=== PATIENT | male | born 1975 | race Caucasian/White ===

== ENCOUNTER 2025-03-17 12:33 | Observation (INO) ==
--- NOTE | 2025-03-17 13:21 | ED Physician Documentation ---
History of Present Illness Stated complaint Stated Complaint: AMS Chief complaint Chief Complaint: General Additonal information Additional information: 49-year-old male currently residing at [facility] due to early onset dementia presents emergency department for concerns from staff that he is acting differently than his normal self. 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 as well as history of seizures related to hyponatremia.Patient is unable to contribute anything to history when you ask him where he is or what his name is he simply responds yes alert and oriented x 0 Meds/Allgy Home Medications Ambulatory Orders Medication Instructions Recorded Confirmed amlodipine 2.5 mg tablet 2.5 mg PO DAILY 02/01/25 escitalopram oxalate 5 mg tablet 5 mg PO ONCE 02/01/25 03/15/25 quetiapine 100 mg tablet 100 mg PO QPM 02/01/2503/15 quetiapine 50 mg tablet 50 mg PO QAM 02/01/25 levetiracetam 500 mg tablet 500 mg PO BID #180 tabs 03/15/25 (Keppra) lorazepam 0.5 mg tablet (Ativan) 0.5 mg PO TID PRN anx iety 14 days 03/15/25 #42 tabs Allergies Allergies Allergy/AdvReac Type Severity Reaction Status Date / Time No Known Drug Allergies Allergy Verified 03/17/25 12:37 PFSH Active Problems All Active Problems (Updated 03/17/25 @ 17:07 by Jason Zelaya DNP) Early onset Alzheimer's dementia (Acute) Acute hypokalemia (Acute) Hypomagnesemia (Acute) Psychogenic polydipsia (Acute) Dementia (Acute) Anxiety (Acute) Seizure (Acute) Laceration of head (Acute) Acute hyponatremia (Acute) Medical History Medical History (Updated 03/17/25 @ 17:07 by Jason Zelaya DNP) Psychogenic polydipsia Dementia Social History Social History (Updated 03/15/25 @ 13:35 by Julia Lay, RN, BSN) Smoking Status: Smoker current status unk Level: Assisted Do you feel safe in your home environment?: Yes History of physical, verbal, emotional, or financial abuse?: No POLST Patient has POLST: No Exam Exam Vital Signs: Vital Signs x48h Temp Pulse Resp BP Pulse Ox 03/17/25 12:37 36.7 C 81 18 121/84 98 Results Vitals Vitals: Vital Signs - 24 hr 03/17/25 12:37 Temperature 36.7 C Temperature Source Temporal Artery Scan Pulse Rate 81 Respiratory Rate 18 Blood Pressure 121/84 O2 Saturation 98 O2 Source Room air Pain Intensity 0 Oxygen O2 Source Room air Labs Labs: Laboratory Tests 03/17/25 03/17/25 13:38 14:09 WBC 8.4 RBC 4.21 L Hgb 12.9 L Hct 35.5 L MCV 84.3 MCH 30.6 MCHC 36.3 H RDW 11.6 L Plt Count 190 MPV 9.1 Neut # (Auto) 6.7 H Lymph # (Auto) 1.0 L [place] # (Auto) 0.6 Eos # (Auto) 0.0 Baso # (Auto) 0.0 Absolute Nucleated RBC 0.00 Nucleated RBC % 0.0 Sodium 117 L* Potassium 3.1 L Chloride 84 L Carbon Dioxide 25 Anion Gap 8.0 BUN 14 Creatinine 0.8 Estimated GFR (MDRD) 102 Glucose 153 H Lactic Acid 1.1 Calcium 8.8 Magnesium 1.4 L Total Bilirubin 1.0 AST 17 ALT 13 Alkaline Phosphatase 44 Total Creatine Kinase 112 Total Protein 6.5 Albumin 4.2 Globulin 2.3 Albumin/Globulin Ratio 1.8 TSH 0.81 Salicylates < 1.5 Acetaminophen < 0.1 Ethyl Alcohol < 10.0 PD Medical Decision Making ED course ED course: 49-year-old male presents to emergency department for ongoing altered mental status. Patient was here couple days ago with similar complaints and was discharged with normal labs. He has been seen to be drinking out of the toilet due to his psychogenic polydipsia. Today upon arrival he is not answering any questions he says yes to everything unable to tell me where he is or what his name is. Labs are complete for further evaluation and reveal hyponatremia, sodium level 117, hypokalemia, potassium 3.1 and hypomagnesemia, magnesium 1.4. Spoke with hospitalist around 1411 who has graciously agreed to admit the patient for hyponatremia he was given IV Bega of magnesium oxide as well as some p.o. potassium and also a total of 50 mL of hypertonic normal saline. Discharge Plan Discharge Patient Disposition: 66 [facility] DC/Xfer Clinical Impression: Acute hyponatremia, Psychogenic polydipsia, Hypomagnesemia, Acute hypokalemia, Early onset Alzheimer's dementia Interventions: ED Admission Assessment Last Done: 03/17/25 14:56 Vitals documented within 30 minutes of discharge?: Yes
[2025-03-17 13:44] LABS: HCT - HEMATOCRIT 35.5 % (42.0-52.0); HGB - HEMOGLOBIN 12.9 g/dL (14.0-18.0); MEAN PLATELET VOLUME 9.1 fL (7.4-11.4); NRBC ABSOLUTE COUNT (AUTO) 0.00 x10^3/uL; NUCLEATED RED BLOOD CELLS AUTO 0.0 /100WBC; PLT - PLATELET COUNT 190 10^3/uL (130-450); RED CELL DISTRIBUTION WIDTH 11.6 % (12.0-15.0)
[2025-03-17 14:00] LABS: CK- CREATINE KINASE 112 IU/L (30-223); ETOH - ETHANOL < 10.0 mg/dL
[2025-03-17 14:05] LABS: ALT ALANINE AMINOTRANSFERASE 13 IU/L (10-60); AST ASPARTATE AMINOTRANSFERASE 17 IU/L (10-42); BUN - BLOOD UREA NITROGEN 14 mg/dL (6-20); CARBON DIOXIDE - CO2 25 mmol/L (21-32); CREATININE 0.8 mg/dL (0.6-1.3); GFR - MDRD 102 (>89)
--- NOTE | 2025-03-17 14:17 | HISTORY & PHYSICAL EXAMINATION ---
Chief Complaint Chief Complaint Chief Complaint: Altered mental status History of Present Illness History Obtained From Records Reviewed: EMR History obtained from: ER documentation, EMR Exam Limitations: Patient not able to provide a reliable ROS History of Present Illness HPI Comment/Other: Patient is a 49-year-old man with a history of cognitive deficits, possible early onset dementia who presented for concerns that he was acting differently from his normal self. He was having persistent nausea, repeated episodes of emesis, as well as persistent hiccups. Per [facility], the facility he lives at, he was drinking from the toilet. He does have a history of psychogenic polydipsia, and seizures related to the hyponatremia. When patient was seen, he is not able to expand further. He just states that he is not in any pain. He appears anxious, restless, and is intermittently following commands. In the ER, patient was vitally stableblood pressure 121/84, heart rate 81, respiratory rate 18, saturating 98% on room air, as well as afebrile. Lab work was reviewedCBC was largely unremarkable. BMP shows a sodium of 117, as well as a potassium of 3.1. TSH is within normal limits. Alcohol, acetaminophen and salicylate levels are negative. Of note, patient was recently admitted here from 02/01 to 02/02 for hyponatremia as well, as low as 116. At that time, he did have a seizure. The hospitalist at that time spoke with the neurologist at [facility], who recommended discharge on Keppra He was given 50 cc of hypertonic saline. Repeat BMP is ordered for 4 PM. He will then meet followed every 3-4 hours. Admitted to the ICU for close monitoring of his sodium. Meds/Allgy Home Medications Ambulatory Orders Medication Instructions Recorded Confirmed amlodipine 2.5 mg tablet 2.5 mg PO DAILY 02/01/25 escitalopram oxalate 5 mg tablet 5 mg PO ONCE 02/01/25 03/15/25 lorazepam 0.5 mg tablet 0.5 mg PO PRN PRN anxiety 03/15/25 quetiapine 100 mg tablet 100 mg PO QPM 02/01/2503/15 quetiapine 50 mg tablet 50 mg PO QAM 02/01/25 levetiracetam 500 mg tablet 500 mg PO BID #180 tabs 03/15/25 (Keppra) lorazepam 0.5 mg tablet (Ativan) 0.5 mg PO TID PRN anx iety 14 days 03/15/25 #42 tabs Allergies Allergies Allergy/AdvReac Type Severity Reaction Status Date / Time No Known Drug Allergies Allergy Verified 03/17/25 12:37 PFSH Active Problems All Active Problems (Updated 03/17/25 @ 15:40 by Nelli Feldman MD) Dementia (Acute) Anxiety (Acute) Seizure (Acute) Laceration of head (Acute) Acute hyponatremia (Acute) Medical History Medical History (Updated 03/17/25 @ 15:40 by Nelli Feldman MD) Psychogenic polydipsia Dementia Social History Social History (Updated 03/15/25 @ 13:35 by Julia Lay, RN, BSN) Smoking Status: Smoker current status unk Level: Independent Do you feel safe in your home environment?: Yes History of physical, verbal, emotional, or financial abuse?: No POLST Patient has POLST: No Review of Systems Status of ROS: unobtainable due to medical condition and unobtainable due to mental status Exam Exam Vital Signs: Vital Signs x48h Temp Pulse Resp BP Pulse Ox 03/17/25 14:52 97 20 132/84 H 98 03/17/25 12:37 98.1 F 81 18 121/84 98 Constitutional normal general appearance, distress noted (mild), average body habitus, limitations noted (altered mental status) and (behavioral limitations) and level of alertness abnormal HENMT normocephalic and head/scalp atraumatic Healed area of abrasion over left eyebrow Eyes PERRL, EOMs intact bilaterally and conjunctivae normal Neck/C-Spine visual inspection normal, trachea midline and cervical spine nontender Chest inspection of chest normal Respiratory breath sounds equal bilaterally, normal respiratory effort, clear to auscultation bilaterally, no wheezes, no rales and no retractions Cardiovascular normal heart rate noted, regular rhythm noted, no gallop, no rub and no murmur Gastrointestinal abdomen normal to inspection, abdomen soft to palpation, nontender to palpation and normoactive bowel sounds Genitourinary no CVA tenderness and bladder normal to palpation Back/Pelvis spine normal to inspection, no thoracic spine tenderness and no lumbar spine tenderness Extremities normal to inspection, normal to palpation, no tenderness and full ROM Neurology Patient moving spontaneously, he does squeeze bilateral hands, but does not follow any other commands to accurately discern full neurological exam Psychiatry orientation abnormal (disoriented to person), (disoriented to place) and (disoriented to time), thought process abnormality noted, uncooperative and affect abnormality noted Skin skin color normal Conclusion/Plan Problem List (1) Acute hyponatremia: Plan: This hyponatremia is 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 Patient was found drinking out of the toilet bowl at his [facility] facility. Sodium is 117. Will give one dose of hypertonic saline, 50 cc, as patient is very symptomatic with this hyponatremiahe is confused, altered, tremulous. Will recheck sodium after this, and then every 3-4 hours after that. Goal correction is 6-8 mill equivalents over 24 hours. If overcorrects, will start D5. Patient was recently admitted from 02/01 to 02/02 for very similar reasons. At that time, he had a seizure. Attempts were made to transfer him to [facility] for EEG, neurology workup, but due to bed availability, this was not successful. Consideration was made for diabetes insipidus. On his last admission, urine osmolality was indeed less than 300, but serum osmolality was also low, making this less likely. Urine osmolality was low, less than, 82. Serum osmolality was also low 244. This is more indicative of psychogenic polydipsia. As such, we will treat with free water restriction, appropriate sodium correction. Patient will need close follow-up with a psychiatrist to determine if Seroquel is causing this, and how to make appropriate adjustments. (2) Seizure: Plan: During his last admission, he did have a seizure. May have been attributed to the hyponatremia. Previous hospitalist spoke with the neurologist, who recommended Keppra, 5 mg twice a day. This will be continued at this time. (3) Dementia: Plan: Typically, patient is conversive, and interactive. Currently this is not the case. Attributed to above. Qualifiers: Dementia type: unspecified type Dementia severity: unspecified severity Dementia behavioral or psychological symptom: unspecified whether behavioral, psychotic, or mood disturbance or anxiety Qualified Code(s): F03.90 - Unspecified dementia, unspecified severity, without behavioral disturbance, psychotic disturbance, mood disturbance, and anxiety Lab Results 03/17/25 13:38 03/17/25 13:38 Diagnostic Imaging Results Diagnostic Imaging Results: positive Final report reviewed Core Measures Anticipated LOS I expect patient to be DC'd or transferred within 96 hours.: Yes Issues Hospital Issues and Management Plan: None anticipated. DVT/VTE - Prophylaxis VTE/DVT Device ordered at admit?: No VTE/DVT Prophylaxis med ordered at admit?: Yes
[2025-03-17] MEDS: MAGNESIUM SULFATE 2 GRAM 2 GM/50 ML BAG IV ONE (14:46)
[2025-03-17] MEDS: SODIUM CHLORIDE 3% HYPERTONIC 50 ML IV SCH ×2 (14:46→17:12)
[2025-03-17] MEDS: POTASSIUM CHLORIDE 20 MEQ TABLET PO STA (14:47)
[2025-03-17] MEDS ORDERED: ONDANSETRON 4 MG/2 ML VIAL IVP PRN (15:12)
[2025-03-17] MEDS ORDERED: ONDANSETRON ODT 4 MG TABLET TL PRN (15:12)
[2025-03-17 16:41] LABS: GLUCOSE, URINE (UA) NEGATIVE (NEGATIVE); KETONES,URINE (UA) NEGATIVE (NEGATIVE); OCCULT BLOOD,URINE TRACE (NEGATIVE)
[2025-03-17 16:53] LABS: COCAINE SCREEN URINE NEGATIVE (NEGATIVE); THC CANNABINOID SCREEN, URINE NEGATIVE (NEGATIVE)
[2025-03-17 16:54] LABS: AMPHETAMINE SCREEN,URINE NEGATIVE (NEGATIVE); BARBITURATE SCREEN,UR NEGATIVE (NEGATIVE); BENZODIAZEPINES SCREEN, URINE POSITIVE (NEGATIVE); BUPRENORPHINE SCREEN, URINE NEGATIVE (NEGATIVE); METHADONE SCREEN, URINE NEGATIVE (NEGATIVE); METHAMPHETAMINES SCREEN, URINE NEGATIVE (NEGATIVE); OPIATE SCREEN, URINE NEGATIVE (NEGATIVE)
[2025-03-17 16:56] LABS: EPITHELIAL CELLS,UR RARE Transitional /HPF (<= Few); SQUAMOUS EPITHELIAL CELL,UR NONE SEEN (<= Few)
[2025-03-17] MEDS: LORazepam 2 MG/ML VIAL IVP SCH (17:20)
[2025-03-17] MEDS: LORazepam 2 MG/ML VIAL IVP ONE (18:13)
[2025-03-17] MEDS: ACETAMINOPHEN 325 MG TABLET PO PRN (20:38)
[2025-03-17 21:24] LABS: BUN - BLOOD UREA NITROGEN 12.0 mg/dL (6-20); CARBON DIOXIDE - CO2 30.0 mmol/L (21-32); CREATININE 1.0 mg/dL (0.6-1.3); GFR - MDRD 79.0 (>89)
[2025-03-18 04:31] LABS: HCT - HEMATOCRIT 39.0 % (42.0-52.0); HGB - HEMOGLOBIN 13.6 g/dL (14.0-18.0); MEAN PLATELET VOLUME 9.2 fL (7.4-11.4); NRBC ABSOLUTE COUNT (AUTO) 0.00 x10^3/uL; NUCLEATED RED BLOOD CELLS AUTO 0.0 /100WBC; PLT - PLATELET COUNT 212 10^3/uL (130-450); RED CELL DISTRIBUTION WIDTH 12.3 % (12.0-15.0)
[2025-03-18 04:52] LABS: BUN - BLOOD UREA NITROGEN 16.0 mg/dL (6-20); CARBON DIOXIDE - CO2 25.0 mmol/L (21-32); CREATININE 0.9 mg/dL (0.6-1.3); GFR - MDRD 89.0 (>89)
[2025-03-18] MEDS: DEXTROSE 5% 1,000 ML IV SCH (07:25)
[2025-03-18] MEDS: DESMOPRESSIN 4 MCG/ML AMP IVP STA (07:44)
[2025-03-18] MEDS: ENOXAPARIN 40 MG/0.4 ML SYRINGE SUBQ SCH (08:43)
--- NOTE | 2025-03-18 09:07 | PROVIDER PROGRESS NOTE ---
Subjective Subjective Subjective: Patient is doing much better today in terms of his mental status. He is alert and oriented x 2. He is cooperative and calm and following commands. His appetite has returned. Plan was to complete MRI today. Apparently he had one done about a month ago. Records have been requested. Current Medications Current Medications Current Medications: Current Medications Generic Name Dose Route Start Last Admin Trade Name Freq PRN Reason Stop Dose Admin Acetaminophen 650 mg 03/17/25 15:12 03/17/25 20:38 Acetaminophen 325 Mg Tablet PO 650 mg Q4HR PRN Administration Pain 1 to 4, or Fever Enoxaparin Sodium 40 mg 03/18/25 09:00 03/18/25 08:43 Enoxaparin 40 Mg/0.4 Ml Syringe SUBQ 40 mg DAILY BERNICE Administration Dextrose 1,000 mls @ 150 mls/hr 03/17/25 22:00 03/18/25 07:44 D5w IV 150 mls/hr .[id number] BERNICE Administration Levetiracetam 500 mg 03/17/25 21:00 03/18/25 08:43 Levetiracetam 250 Mg Tablet PO 500 mg BID BERNICE Administration Lorazepam 0.5 mg 03/17/25 15:39 03/17/25 16:51 Lorazepam 0.5 Mg Tablet PO 0.5 mg TID PRN Administration Anxiety Ondansetron HCl 4 mg 03/17/25 15:12 Ondansetron Odt 4 Mg Tablet TL Q6HR PRN Nausea / Vomiting Ondansetron HCl 4 mg 03/17/25 15:12 Ondansetron 4 Mg/2 Ml Vial IVP Q6HR PRN Nausea / Vomiting Prochlorperazine Edisylate 10 mg 03/17/25 20:23 Prochlorperazine 10 Mg/2 Ml Vial IVP Q6HR PRN Nausea / Vomiting Quetiapine Fumarate 100 mg 03/17/25 21:00 03/17/25 20:38 Quetiapine 100 Mg Tablet PO 100 mg QPM BERNICE Administration Quetiapine Fumarate 50 mg 03/17/25 17:40 03/18/25 08:43 Quetiapine 25 Mg Tablet PO 50 mg DAILY BERNICE Administration Trazodone HCl 50 mg 03/17/25 21:00 03/17/25 20:41 Trazodone 50 Mg Tablet PO 50 mg QPM BERNICE Administration Objective Vital Signs/Intake & Output Reviewed Vital Signs: Yes Vital Signs: Vital Signs x48h Temp Pulse Resp BP Pulse Ox 03/18/25 09:00 99.0 F 82 17 109/70 97 03/18/25 08:00 74 15 91/54 L 95 03/18/25 07:00 73 15 100/59 L 96 03/18/25 06:00 76 17 113/56 L 96 03/18/25 05:00 98.4 F 03/18/25 05:00 78 13 101/60 95 03/18/25 04:00 83 13 114/62 95 03/18/25 03:00 78 14 107/61 95 03/18/25 02:00 99.1 F 94 17 103/72 95 Intake & Output: Intake & Output 03/15/25 03/16/25 03/17/25 03/18/25 23:59 23:59 23:59 23:59 Intake Total 1066 / 1066 240 / 240 Output Total 6725 / 6725 650 / 650 Balance -5659 / -5659 -410 / -410 Weight (kg) 72 kg Objective General Appearance: positive No acute distress and Alert; negative Anxious Eyes Bilateral: positive Normal inspection, PERRL, EOMI and Other (Healed area of abrasion over left eyebrow) ENT: positive ENT inspection nml, Pharynx nml and No signs of dehydration Neck: positive Nml inspection, Thyroid nml and No JVD Respiratory: positive Chest non-tender, No respiratory distress and Breath sounds nml; negative Wheezes, Rales or Rhonchi Cardiovascular: positive Regular rate & rhythm, No murmur and No gallop; negative Tachycardia or Systolic murmur Abdomen: positive Non-tender, No organomegaly and No distention; negative Guarding or Splenomegaly Back: positive Nml inspection; negative CVA tenderness (R) or CVA tenderness (L) Skin: positive Color nml, No rash, Warm and Dry Extremities: positive Non-tender, Full ROM, Nml appearance and No pedal edema Neurologic/Psychiatric: positive Motor nml, Mood/affect nml and Disoriented to place Lab Results 03/18/25 04:26 03/18/25 13:42 Other Labs: Lab Results x24hrs 03/18/25 03/18/25 03/17/25 Range/Units 04:26 02:00 22:04 WBC 6.4 (4.8-10.8) x10^3/uL RBC 4.42 L (4.70-6.10) 10^6/uL Hgb 13.6 L (14.0-18.0) g/dL Hct 39.0 L (42.0-52.0) % MCV 88.2 (80.0-94.0) fL MCH 30.8 (27.0-31.0) pg MCHC 34.9 (32.0-36.0) g/dL RDW 12.3 (12.0-15.0) % Plt Count 212 (130-450) 10^3/uL MPV 9.2 (7.4-11.4) fL Neut # (Auto) 4.3 (1.5-6.6) 10^3/uL Lymph # (Auto) 1.4 L (1.5-3.5) 10^3/uL [place] # (Auto) 0.7 (0.0-1.0) 10^3/uL Eos # (Auto) 0.1 (0.0-0.7) 10^3/uL Baso # (Auto) 0.0 (0.0-0.1) 10^3/uL Absolute Nucleated RBC 0.00 x10^3/uL Nucleated RBC % 0.0 /100WBC Sodium 137 136 135 (135-145) mmol/L Potassium 4.3 (3.5-4.5) mmol/L Chloride 106 (101-111) mmol/L Carbon Dioxide 25 (21-32) mmol/L Anion Gap 6.0 (6-13) BUN 16 (6-20) mg/dL Creatinine 0.9 (0.6-1.3) mg/dL Estimated GFR (MDRD) 89 (>89) Glucose 131 H (74-104) mg/dL Lactic Acid (0.5-2.2) mmol/L Calcium 8.8 (8.5-10.3) mg/dL Magnesium (1.7-2.3) mg/dL Total Bilirubin (0.2-1.0) mg/dL AST (10-42) IU/L ALT (10-60) IU/L Alkaline Phosphatase (42-121) IU/L Total Creatine Kinase (30-223) IU/L Total Protein (6.4-8.9) g/dL Albumin (3.2-5.5) g/dL Globulin (2.1-4.2) g/dL Albumin/Globulin Ratio (1.0-2.2) TSH (0.34-5.60) uIU/mL Urine Color Urine Clarity (CLEAR) Urine pH (5.0-7.5) PH Ur Specific [place] (1.002-1.030) Urine Protein (NEGATIVE) mg/dL Urine Glucose (UA) (NEGATIVE) mg/dL Urine Ketones (NEGATIVE) mg/dL Urine Occult Blood (NEGATIVE) Urine Nitrite (NEGATIVE) Urine Bilirubin (NEGATIVE) Urine Urobilinogen (NORMAL) E.U./dL Ur Leukocyte Esterase (NEGATIVE) Urine RBC (0-5) /HPF Urine WBC (0-3) /HPF Ur Epithelial Cells (<= Few) /HPF Ur Squamous Epith Cells (<= Few) Urine Bacteria (None Seen) /HPF Ur Microscopic Review Urine Culture Comments Nasal Screen MRSA (PCR) (NEGATIVE) Salicylates mg/dL Urine Opiates Screen (NEGATIVE) Ur Buprenorphine Scrn (NEGATIVE) Ur Oxycodone Screen (NEGATIVE) Urine Methadone Screen (NEGATIVE) Urine Fentanyl Screen (NEGATIVE) Acetaminophen ug/mL Ur Barbiturates Screen (NEGATIVE) Ur Tricyclics Screen (NEGATIVE) Ur Phencyclidine Scrn (NEGATIVE) Ur Amphetamine Screen (NEGATIVE) U Methamphetamines Scrn (NEGATIVE) U Benzodiazepines Scrn (NEGATIVE) Urine Cocaine Screen (NEGATIVE) U Cannabinoids Screen (NEGATIVE) Ur Drug Screen Comment Ethyl Alcohol mg/dL 03/17/25 03/17/25 03/17/25 Range/Units 20:52 16:21 16:00 WBC (4.8-10.8) x10^3/uL RBC (4.70-6.10) 10^6/uL Hgb (14.0-18.0) g/dL Hct (42.0-52.0) % MCV (80.0-94.0) fL MCH (27.0-31.0) pg MCHC (32.0-36.0) g/dL RDW (12.0-15.0) % Plt Count (130-450) 10^3/uL MPV (7.4-11.4) fL Neut # (Auto) (1.5-6.6) 10^3/uL Lymph # (Auto) (1.5-3.5) 10^3/uL [place] # (Auto) (0.0-1.0) 10^3/uL Eos # (Auto) (0.0-0.7) 10^3/uL Baso # (Auto) (0.0-0.1) 10^3/uL Absolute Nucleated RBC x10^3/uL Nucleated RBC % /100WBC Sodium 135 120 L* (135-145) mmol/L Potassium 3.9 (3.5-4.5) mmol/L Chloride 99 L (101-111) mmol/L Carbon Dioxide 30 (21-32) mmol/L Anion Gap 6.0 (6-13) BUN 12 (6-20) mg/dL Creatinine 1.0 (0.6-1.3) mg/dL Estimated GFR (MDRD) 79 L (>89) Glucose 135 H (74-104) mg/dL Lactic Acid (0.5-2.2) mmol/L Calcium 9.2 (8.5-10.3) mg/dL Magnesium 2.5 H (1.7-2.3) mg/dL Total Bilirubin (0.2-1.0) mg/dL AST (10-42) IU/L ALT (10-60) IU/L Alkaline Phosphatase (42-121) IU/L Total Creatine Kinase (30-223) IU/L Total Protein (6.4-8.9) g/dL Albumin (3.2-5.5) g/dL Globulin (2.1-4.2) g/dL Albumin/Globulin Ratio (1.0-2.2) TSH (0.34-5.60) uIU/mL Urine Color YELLOW Urine Clarity CLEAR (CLEAR) Urine pH 7.0 (5.0-7.5) PH Ur Specific [place] 1.005 (1.002-1.030) Urine Protein NEGATIVE (NEGATIVE) mg/dL Urine Glucose (UA) NEGATIVE (NEGATIVE) mg/dL Urine Ketones NEGATIVE (NEGATIVE) mg/dL Urine Occult Blood TRACE (NEGATIVE) Urine Nitrite NEGATIVE (NEGATIVE) Urine Bilirubin NEGATIVE (NEGATIVE) Urine Urobilinogen 0.2 (NORMAL) (NORMAL) E.U./dL Ur Leukocyte Esterase NEGATIVE (NEGATIVE) Urine RBC 0-5 (0-5) /HPF Urine WBC 0-3 (0-3) /HPF Ur Epithelial Cells RARE Transitional (<= Few) /HPF Ur Squamous Epith Cells NONE SEEN (<= Few) Urine Bacteria None Seen (None Seen) /HPF Ur Microscopic Review INDICATED Urine Culture Comments NOT INDICATED Nasal Screen MRSA (PCR) (NEGATIVE) Salicylates mg/dL Urine Opiates Screen NEGATIVE (NEGATIVE) Ur Buprenorphine Scrn NEGATIVE (NEGATIVE) Ur Oxycodone Screen NEGATIVE (NEGATIVE) Urine Methadone Screen NEGATIVE (NEGATIVE) Urine Fentanyl Screen Negative (NEGATIVE) Acetaminophen ug/mL Ur Barbiturates Screen NEGATIVE (NEGATIVE) Ur Tricyclics Screen POSITIVE H (NEGATIVE) Ur Phencyclidine Scrn NEGATIVE (NEGATIVE) Ur Amphetamine Screen NEGATIVE (NEGATIVE) U Methamphetamines Scrn NEGATIVE (NEGATIVE) U Benzodiazepines Scrn POSITIVE H (NEGATIVE) Urine Cocaine Screen NEGATIVE (NEGATIVE) U Cannabinoids Screen NEGATIVE (NEGATIVE) Ur Drug Screen Comment CUTOFF CONC BELOW: Ethyl Alcohol mg/dL 03/17/25 03/17/25 03/17/25 Range/Units 15:14 14:09 13:38 WBC 8.4 (4.8-10.8) x10^3/uL RBC 4.21 L (4.70-6.10) 10^6/uL Hgb 12.9 L (14.0-18.0) g/dL Hct 35.5 L (42.0-52.0) % MCV 84.3 (80.0-94.0) fL MCH 30.6 (27.0-31.0) pg MCHC 36.3 H (32.0-36.0) g/dL RDW 11.6 L (12.0-15.0) % Plt Count 190 (130-450) 10^3/uL MPV 9.1 (7.4-11.4) fL Neut # (Auto) 6.7 H (1.5-6.6) 10^3/uL Lymph # (Auto) 1.0 L (1.5-3.5) 10^3/uL [place] # (Auto) 0.6 (0.0-1.0) 10^3/uL Eos # (Auto) 0.0 (0.0-0.7) 10^3/uL Baso # (Auto) 0.0 (0.0-0.1) 10^3/uL Absolute Nucleated RBC 0.00 x10^3/uL Nucleated RBC % 0.0 /100WBC Sodium 117 L* (135-145) mmol/L Potassium 3.1 L (3.5-4.5) mmol/L Chloride 84 L (101-111) mmol/L Carbon Dioxide 25 (21-32) mmol/L Anion Gap 8.0 (6-13) BUN 14 (6-20) mg/dL Creatinine 0.8 (0.6-1.3) mg/dL Estimated GFR (MDRD) 102 (>89) Glucose 153 H (74-104) mg/dL Lactic Acid 1.1 (0.5-2.2) mmol/L Calcium 8.8 (8.5-10.3) mg/dL Magnesium 1.4 L (1.7-2.3) mg/dL Total Bilirubin 1.0 (0.2-1.0) mg/dL AST 17 (10-42) IU/L ALT 13 (10-60) IU/L Alkaline Phosphatase 44 (42-121) IU/L Total Creatine Kinase 112 (30-223) IU/L Total Protein 6.5 (6.4-8.9) g/dL Albumin 4.2 (3.2-5.5) g/dL Globulin 2.3 (2.1-4.2) g/dL Albumin/Globulin Ratio 1.8 (1.0-2.2) TSH 0.81 (0.34-5.60) uIU/mL Urine Color Urine Clarity (CLEAR) Urine pH (5.0-7.5) PH Ur Specific [place] (1.002-1.030) Urine Protein (NEGATIVE) mg/dL Urine Glucose (UA) (NEGATIVE) mg/dL Urine Ketones (NEGATIVE) mg/dL Urine Occult Blood (NEGATIVE) Urine Nitrite (NEGATIVE) Urine Bilirubin (NEGATIVE) Urine Urobilinogen (NORMAL) E.U./dL Ur Leukocyte Esterase (NEGATIVE) Urine RBC (0-5) /HPF Urine WBC (0-3) /HPF Ur Epithelial Cells (<= Few) /HPF Ur Squamous Epith Cells (<= Few) Urine Bacteria (None Seen) /HPF Ur Microscopic Review Urine Culture Comments Nasal Screen MRSA (PCR) NEGATIVE (NEGATIVE) Salicylates < 1.5 mg/dL Urine Opiates Screen (NEGATIVE) Ur Buprenorphine Scrn (NEGATIVE) Ur Oxycodone Screen (NEGATIVE) Urine Methadone Screen (NEGATIVE) Urine Fentanyl Screen (NEGATIVE) Acetaminophen < 0.1 ug/mL Ur Barbiturates Screen (NEGATIVE) Ur Tricyclics Screen (NEGATIVE) Ur Phencyclidine Scrn (NEGATIVE) Ur Amphetamine Screen (NEGATIVE) U Methamphetamines Scrn (NEGATIVE) U Benzodiazepines Scrn (NEGATIVE) Urine Cocaine Screen (NEGATIVE) U Cannabinoids Screen (NEGATIVE) Ur Drug Screen Comment Ethyl Alcohol < 10.0 mg/dL Diagnostic Imaging Diagnostic Imaging Results: positive Final report reviewed Assessment/Plan Problem List (1) Acute hyponatremia: Impression: This hyponatremia is 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 Patient was found drinking out of the toilet bowl at his [facility] facility. Sodium is 117. Patinet was given hypertonic saline, 50 cc, x 2 as patient was very symptomatic with this hyponatremiahe was confused, altered, tremulous. Goal correction is 6-8 mill equivalents over 24 hours. He overcorrected overnight. D5 was ordered overnight. DDAVP given this morning. Continue to trend BMPs today. Monitor for hypokalemia with D5 use. Patient was recently admitted from 02/01 to 02/02 for very similar reasons. At that time, he had a seizure. Attempts were made to transfer him to [place] for EEG, neurology workup, but due to bed availability, this was not successful. Consideration was made for diabetes insipidus. On his last admission, urine osmolality was indeed less than 300, but serum osmolality was also low, making this less likely. Urine osmolality was low, less than, 82. Serum osmolality was also low 244. This is more indicative of psychogenic polydipsia. As such, we will treat with free water restriction, appropriate sodium correction. Patient will need close follow-up with a psychiatrist to determine if Seroquel is causing this, and how to make appropriate adjustments. (2) Seizure: Impression: During his last admission, he did have a seizure. May have been attributed to the hyponatremia. Previous hospitalist spoke with the neurologist, who recommended Keppra, 500 mg twice a day. This will be continued at this time. (3) Dementia: Impression: Typically, patient is conversive, and interactive. Back at his baseline. Continue nightly Seroquel. Qualifiers: Dementia behavioral or psychological symptom: unspecified whether behavioral, psychotic, or mood disturbance or anxiety Dementia severity: u nspecified severity Dementia type: unspecified type Qualified Code(s): F03.90 - Unspecified dementia, unspecified severity, without behavioral disturbance, psychotic disturbance, mood disturbance, and anxiety
[2025-03-18 17:13] LABS: BUN - BLOOD UREA NITROGEN 16.0 mg/dL (6-20); CARBON DIOXIDE - CO2 26.0 mmol/L (21-32); CREATININE 0.8 mg/dL (0.6-1.3); GFR - MDRD 102.0 (>89)
--- NOTE | 2025-03-18 17:17 | PHARMACY PROGRESS NOTE ---
Best Possible Medication History Admit Date and Time: 03/17/25 [id number] Home Medications Medication Instructions Recorded Confirmed Type amlodipine 2.5 mg tablet 2.5 mg PO DAILY 02/01/25 History escitalopram oxalate 5 mg tablet 5 mg PO DAILY 5 03/18/25 History quetiapine 100 mg tablet 100 mg PO QPM 02/01/2503/18 History quetiapine 50 mg tablet 50 mg PO QAM 02/01/25 History levetiracetam 500 mg tablet 500 mg PO BID #180 tabs 03/18/25 Rx (Keppra) lorazepam 0.5 mg tablet (Ativan) 0.5 mg PO DAILY PRN a nxiety 03/18/25 03/18/25 History Processed by: Pharmacy Medications reviewed in ED?: No Medication History completed: Yes Patient Interview: Pt unable to participate Secondary Source(s): Pharmacy records, Insurance records and Previous admit records [facility] Statement: As the person ultimately responsible for medication therapy, providers are able to order a medication from an existing home medication list in [facility] via the "Reconcile Routine" prior to Confirmation of that medication by administrative support specialist. Such practice is discouraged except when the physician, in their clinical judgment, deems that a medical need exists for a medication without regard to previous use.
[2025-03-18 21:49] LABS: BUN - BLOOD UREA NITROGEN 15.0 mg/dL (6-20); CARBON DIOXIDE - CO2 27.0 mmol/L (21-32); CREATININE 0.7 mg/dL (0.6-1.3); GFR - MDRD 119.0 (>89)
[2025-03-18] MEDS: PROCHLORPERAZINE 10 MG/2 ML VIAL IVP PRN (22:42)
[2025-03-19 01:51] LABS: BUN - BLOOD UREA NITROGEN 14.0 mg/dL (6-20); CARBON DIOXIDE - CO2 28.0 mmol/L (21-32); CREATININE 0.7 mg/dL (0.6-1.3); GFR - MDRD 119.0 (>89)
[2025-03-19 04:50] LABS: HCT - HEMATOCRIT 35.0 % (42.0-52.0); HGB - HEMOGLOBIN 11.9 g/dL (14.0-18.0); MEAN PLATELET VOLUME 9.1 fL (7.4-11.4); NRBC ABSOLUTE COUNT (AUTO) 0.00 x10^3/uL; NUCLEATED RED BLOOD CELLS AUTO 0.0 /100WBC; PLT - PLATELET COUNT 167 10^3/uL (130-450); RED CELL DISTRIBUTION WIDTH 12.5 % (12.0-15.0)
[2025-03-19 05:06] LABS: BUN - BLOOD UREA NITROGEN 12.0 mg/dL (6-20); CARBON DIOXIDE - CO2 26.0 mmol/L (21-32); CREATININE 0.6 mg/dL (0.6-1.3); GFR - MDRD 143.0 (>89)
--- NOTE | 2025-03-19 08:01 | PROVIDER PROGRESS NOTE ---
Subjective Prog Note Date Prog Note Date: 03/19/25 Prog Note Time: 08:01 Subjective Subjective: He tells me he was born in [place]. But he cannot remember how he came to [facility]. Cannot remember where he lives. He knows this is a hospital but he does not know why he is here. I can redirect him. No outburst of behavior. He keeps on asking for water. He tells me he is thirsty and he just wants to drink water. He denies any pain. No headache. No chest pain. No abdominal pain. Does not feel like he is short of breath. And he is not coughing. Current Medications Current Medications Current Medications: Current Medications Generic Name Dose Route Start Last Admin Trade Name Freq PRN Reason Stop Dose Admin Acetaminophen 650 mg 03/17/25 15:12 03/17/25 20:38 Acetaminophen 325 Mg Tablet PO 650 mg Q4HR PRN Administration Pain 1 to 4, or Fever Enoxaparin Sodium 40 mg 03/18/25 09:00 03/18/25 08:43 Enoxaparin 40 Mg/0.4 Ml Syringe SUBQ 40 mg DAILY BERNICE Administration Levetiracetam 500 mg 03/17/25 21:00 03/18/25 20:38 Levetiracetam 250 Mg Tablet PO 500 mg BID BERNICE Administration Lorazepam 0.5 mg 03/17/25 15:39 03/18/25 22:40 Lorazepam 0.5 Mg Tablet PO 0.5 mg TID PRN Administration Anxiety Ondansetron HCl 4 mg 03/17/25 15:12 Ondansetron Odt 4 Mg Tablet TL Q6HR PRN Nausea / Vomiting Ondansetron HCl 4 mg 03/17/25 15:12 Ondansetron 4 Mg/2 Ml Vial IVP Q6HR PRN Nausea / Vomiting Prochlorperazine Edisylate 10 mg 03/17/25 20:23 03/18/25 22:42 Prochlorperazine 10 Mg/2 Ml Vial IVP 10 mg Q6HR PRN Administration Nausea / Vomiting Quetiapine Fumarate 100 mg 03/17/25 21:00 03/18/25 20:38 Quetiapine 100 Mg Tablet PO 100 mg QPM BERNICE Administration Quetiapine Fumarate 50 mg 03/17/25 17:40 03/18/25 08:43 Quetiapine 25 Mg Tablet PO 50 mg DAILY BERNICE Administration Trazodone HCl 50 mg 03/17/25 21:00 03/18/25 20:38 Trazodone 50 Mg Tablet PO 50 mg QPM BERNICE Administration Objective Vital Signs/Intake & Output Reviewed Vital Signs: Yes Vital Signs: Vital Signs x48h Temp Pulse Resp BP Pulse Ox 03/19/25 06:58 66 14 95 03/19/25 06:00 63 14 101/70 95 03/19/25 05:00 68 14 104/65 95 03/19/25 04:00 66 13 124/72 96 03/19/25 03:00 66 14 117/68 94 03/19/25 02:00 36.9 C 66 16 130/79 97 03/19/25 01:00 66 14 113/68 97 Intake & Output: Intake & Output 03/16/25 03/17/25 03/18/25 03/19/25 23:59 23:59 23:59 23:59 Intake Total 1066 / 1066 3930 / 3930 225 / 225 Output Total 6725 / 6725 1260 / 1260 980 / 980 Balance -5659 / -5659 2670 / 2670 -755 / -755 Weight (kg) 72 kg Objective General Appearance: positive No acute distress, Alert and Other (Looks much younger than stated age.) Eyes Bilateral: positive PERRL and EOMI ENT: positive No signs of dehydration Neck: positive No JVD; negative Stiff neck or Carotid bruit Respiratory: positive Chest non-tender, No respiratory distress and Breath sounds nml Cardiovascular: positive Regular rate & rhythm, No murmur and No gallop Abdomen: positive Non-tender, No organomegaly and Nml bowel sounds Skin: positive Color nml, Warm and Dry Extremities: positive Non-tender, Full ROM and Nml appearance Neurologic/Psychiatric: positive CN's nml (2-12), Motor nml, Disoriented to place and Disoriented to time; negative Mood/affect nml Lab Results 03/19/25 04:43 03/19/25 12:54 Other Labs: Lab Results x24hrs 03/19/25 03/19/25 03/18/25 Range/Units 04:43 01:20 21:30 WBC 5.3 (4.8-10.8) x10^3/uL RBC 3.90 L (4.70-6.10) 10^6/uL Hgb 11.9 L (14.0-18.0) g/dL Hct 35.0 L (42.0-52.0) % MCV 89.7 (80.0-94.0) fL MCH 30.5 (27.0-31.0) pg MCHC 34.0 (32.0-36.0) g/dL RDW 12.5 (12.0-15.0) % Plt Count 167 (130-450) 10^3/uL MPV 9.1 (7.4-11.4) fL Neut # (Auto) 2.6 (1.5-6.6) 10^3/uL Lymph # (Auto) 1.9 (1.5-3.5) 10^3/uL [place] # (Auto) 0.6 (0.0-1.0) 10^3/uL Eos # (Auto) 0.2 (0.0-0.7) 10^3/uL Baso # (Auto) 0.0 (0.0-0.1) 10^3/uL Absolute Nucleated RBC 0.00 x10^3/uL Nucleated RBC % 0.0 /100WBC Sodium 126 L 128 L 129 L (135-145) mmol/L Potassium 3.5 3.7 3.9 (3.5-4.5) mmol/L Chloride 95 L 95 L 97 L (101-111) mmol/L Carbon Dioxide 26 28 27 (21-32) mmol/L Anion Gap 5.0 L 5.0 L 5.0 L (6-13) BUN 12 14 15 (6-20) mg/dL Creatinine 0.6 0.7 0.7 (0.6-1.3) mg/dL Estimated GFR (MDRD) 143 119 119 (>89) Glucose 102 108 H 132 H (74-104) mg/dL Calcium 8.2 L 8.2 L 8.1 L (8.5-10.3) mg/dL Magnesium 1.9 (1.7-2.3) mg/dL 03/18/25 03/18/25 03/18/25 Range/Units 16:51 13:42 09:59 WBC (4.8-10.8) x10^3/uL RBC (4.70-6.10) 10^6/uL Hgb (14.0-18.0) g/dL Hct (42.0-52.0) % MCV (80.0-94.0) fL MCH (27.0-31.0) pg MCHC (32.0-36.0) g/dL RDW (12.0-15.0) % Plt Count (130-450) 10^3/uL MPV (7.4-11.4) fL Neut # (Auto) (1.5-6.6) 10^3/uL Lymph # (Auto) (1.5-3.5) 10^3/uL [place] # (Auto) (0.0-1.0) 10^3/uL Eos # (Auto) (0.0-0.7) 10^3/uL Baso # (Auto) (0.0-0.1) 10^3/uL Absolute Nucleated RBC x10^3/uL Nucleated RBC % /100WBC Sodium 132 L 134 L 135 (135-145) mmol/L Potassium 3.8 (3.5-4.5) mmol/L Chloride 100 L (101-111) mmol/L Carbon Dioxide 26 (21-32) mmol/L Anion Gap 6.0 (6-13) BUN 16 (6-20) mg/dL Creatinine 0.8 (0.6-1.3) mg/dL Estimated GFR (MDRD) 102 (>89) Glucose 149 H (74-104) mg/dL Calcium 8.0 L (8.5-10.3) mg/dL Magnesium (1.7-2.3) mg/dL Assessment/Plan Problem List (1) Acute hyponatremia: Impression: This hyponatremia is 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 Patient was found drinking out of the toilet bowl at his [facility] facility. Sodium is 117. Patient was given hypertonic saline, 50 cc, x 2 as patient was very symptomatic with this hyponatremiahe was confused, altered, tremulous. Goal correction is 6-8 mill equivalents over 24 hours. 03/18>>He overcorrected overnight. D5 was ordered overnight. DDAVP given. Continue to trend BMPs.Monitor for hypokalemia with D5 use. Patient was recently admitted from 02/01 to 02/02 to for very similar reasons. At that time, he had a seizure. Attempts were made to transfer him to [place] for EEG, neurology workup, but due to bed availability, this was not successful. He had been admitted to [facility] December 2024 twice for this and it was from one of those discharges that he came to this [place]. Consideration was made for diabetes insipidus. On his last admission, urine osmolality was indeed less than 300, but serum osmolality was also low, making this less likely. Urine osmolality was low, less than, 82. Serum osmolality was also low 244. This is more indicative of psychogenic polydipsia. As such, we treated with free water restriction, appropriate sodium correction. Patient will need close follow-up with a psychiatrist to determine if Seroquel is causing this but the behavior started BEFORE the Seroquel was given 03/19>>4:45 AM sodium 126. D5 stopped at approximately 8 in the morning. At 9 AM sodium 130. At 1 PM sodium 136 so D5 resumed again. Too fast of a correction. -- The neurologist who took care of him in December, Dr. Sauceda, called us and left a message with the nurse. Said to call them back if we needed advice. The on- call neurologist answered at [phone]. They will recommend using Gatorade or any other oral electrolyte replacement instead of water to see if that would curb some of his behavior. They also recommended Depakote IV to see if we could control some of the impulsive thought process. (2) Seizure: Impression: During his last admission, he did have a seizure. May have been attributed to the hyponatremia. Previous hospitalist at that time spoke with the neurologist, who recommended Keppra, 500 mg twice a day. This will be continued at this time. (3) Dementia: Impression: Typically, patient is conversive, and interactive. Back at his baseline. Continue nightly Seroquel. Qualifiers: Dementia behavioral or psychological symptom: unspecified whether behavioral, psychotic, or mood disturbance or anxiety Dementia severity: u nspecified severity Dementia type: unspecified type Qualified Code(s): F03.90 - Unspecified dementia, unspecified severity, without behavioral disturbance, psychotic disturbance, mood disturbance, and anxiety
[2025-03-19 09:22] LABS: BUN - BLOOD UREA NITROGEN 11.0 mg/dL (6-20); CARBON DIOXIDE - CO2 29.0 mmol/L (21-32); CREATININE 0.7 mg/dL (0.6-1.3); GFR - MDRD 119.0 (>89)
[2025-03-19 13:16] LABS: BUN - BLOOD UREA NITROGEN 12.0 mg/dL (6-20); CARBON DIOXIDE - CO2 27.0 mmol/L (21-32); CREATININE 0.7 mg/dL (0.6-1.3); GFR - MDRD 119.0 (>89)
[2025-03-19] MEDS: DEXTROSE 5% 1,000 ML IV SCH (13:45)
[2025-03-19 19:45] LABS: BUN - BLOOD UREA NITROGEN 13.0 mg/dL (6-20); CARBON DIOXIDE - CO2 28.0 mmol/L (21-32); CREATININE 0.7 mg/dL (0.6-1.3); GFR - MDRD 119.0 (>89)
[2025-03-19] MEDS: DIVALPROEX DR 250 MG TABLET PO SCH (20:29)
[2025-03-20 06:27] LABS: HCT - HEMATOCRIT 40.4 % (42.0-52.0); HGB - HEMOGLOBIN 13.4 g/dL (14.0-18.0); MEAN PLATELET VOLUME 9.3 fL (7.4-11.4); NRBC ABSOLUTE COUNT (AUTO) 0.00 x10^3/uL; NUCLEATED RED BLOOD CELLS AUTO 0.0 /100WBC; PLT - PLATELET COUNT 209 10^3/uL (130-450); RED CELL DISTRIBUTION WIDTH 12.9 % (12.0-15.0)
[2025-03-20 06:43] LABS: BUN - BLOOD UREA NITROGEN 12.0 mg/dL (6-20); CARBON DIOXIDE - CO2 31.0 mmol/L (21-32); CREATININE 0.8 mg/dL (0.6-1.3); GFR - MDRD 102.0 (>89)
--- NOTE | 2025-03-20 13:37 | Discharge Summary ---
Discharge Summary Admit Date: 03/17/25 Discharge Date: 03/20/25 Discharging Provider: Cecilia Kaufman MD Primary Care Provider: Lashell Pillai MD Code Status: Attempt Resuscitation DIAGNOSES Discharge Diagnoses with Status of Each Condition: 1. Acute hyponatremia, Present on admission and resolved 2. Seizure, Present on admission and resolved 3. Psychogenic polydipsia 4. Cognitive delay, since childhood 5. Frontotemporal dementia 6. Compulsive 7. Hypertension HPI History of Present Illness: Mr. jones presented from a nursing/rehab facility for evaluation of AMS. History as provided was obtained from the ED attending Dr. Agrawal as patient was too altered to provide any history. Patient was recently discharged to the nursing and rehab facility from an outside hospital. He was found down and unresponsive by the N&R staff. In the ED workup revealed a sodium of 116. CT head and neck were unremarkable. Upon returning from imaging patient had a witnessed seizure of 40 secs. The patient was started on hypertonic saline in the ED, he also received 2mg of IV ativan. Discussed with the ED physician of available consultation support. Nephrology and Neurology do not provide coverage. However, he informed me that patient's with hyponatremia have been admitted and this patient was protecting his airway adn otherwise stable for admission at this facility. This visit was performed using telehealth tools, including phone and live-video. patient unable provide verbal consent to complete this telemedicine encounter-in the setting of emergency, consent assumed and provided through participating physicians. During the time of this visit, patient was located at [facility] in the [facility], I was located in [place]. HOSPITAL COURSE Hospital Course: Review of the records in our EMR shows this gentleman to have been hospital of [facility] in [place] January 08 through January 11. And then January 29 through February 01 for hyponatremia. The patient has a history of cognitive impairment, developmental delay, hyponatremia due to psychogenic polydipsia. He also appears to have frontal lobe dementia. With the 2 episodes in December both of them were psychogenic polydipsia. MRI of the head was notable for advanced ischemic vascular disease given his age. He was placed on a free water restriction with sodium normalizing. Ultimately discharged home on Lexapro and Seroquel. But with the second admission, at discharge the family could not take him home due to his behavior. The reason he was admitted the second time was leaving his house at 5:30 in the morning and wandering around the neighborhood. Wandering into traffic. He eventually made it back home but wanted to leave again to go to the police department to report people "stealing water". That is when he was admitted the second time. With the second admission, he continued to have compulsive/impulsive behaviors there. Eating paper and swallowing foods whole. He was put on a pured diet because of this. At one point he was still continuing to drink from the toilet even though he was on Seroquel 100 mg at bedtime and 50 mg a.m. He was discharged to a facility here on [facility]. He was then admitted here February 01. If I am reading the medical record correctly, he was only in the [facility] for a day before he was brought to our emergency room. He was found down and unresponsive by the staff. In our emergency room his sodium was 116. He was started on hypertonic saline because he had a witnessed seizure of 40 seconds. He was discharged the next day after sodium was stabilized. And started on Keppra after discussion with Neurology.. He is now admitted a second time for hyponatremia. The patient was given hypertonic saline twice. Sodium overcompensated and we had to put him on D5. Even on D5, sodium remained between 130 and 135. By the second day of sodium over 130, the patient was still at baseline status. Feeding himself. Following commands. Brushing his teeth. Walking in the room without any ataxia. With felt he was stable for home. We do feel that he would benefit from an EEG, neurology consultation. He has already seen neurology in [place] With his December admissions. He sees a doctor Joi Sauceda MD. she did call us and leave the on-call number [phone]. I spoke to the on-call neurologist and she recommends adding Depakote for impulsive and compulsive behaviors that are difficult to manage. She also states that if he has to drink fluids, give him Gatorade or fluids like Pedialyte. He will need to see his primary care provider in follow-up as well as neurology. At this point it is a difficult problem to solve and that this gentleman cannot be around water. The entire time he was here he kept on asking for more water and even though we explained what was happening, he kept on asking for water. He was in the ICU with one-to-one supervision. If left alone I think he would go back into the bathroom and drink from the toilet bowl like he did at [facility]. At discharge blood pressure is 123/86, pulse 104, respirations 12. 98% on room air. He is an alert gentleman. Looks much younger than stated age of 49. He does not know where he is, he does not know why he is here. But he knows who he is. Nonstop chatting. Shotty neck adenopathy. But supple neck. Lungs are clear to auscultation and percussion. And intermittently tachycardic regular rate and rhythm. An abdomen that soft, nontender. Extremities without edema. Patient will spontaneously go from supine to sitting, sitting to standing and pacing in the room without any ataxia. Greater than 30 minutes were spent coordinating discharge and reviewing old records. . Advance care planning conversation held. This is with his DPOA and sister. Please see under separate dictation This document was made in part using voice recognition software. While efforts are made to proofread this document, sound alike and grammatical errors may occur. ALLERGIES Allergies Allergy/AdvReac Type Severity Reaction Status Date / Time No Known Drug Allergies Allergy Verified 03/17/25 12:37 MEDICATIONS Ambulatory Orders Medication Instructions Recorded Confirmed amlodipine 2.5 mg tablet 2.5 mg PO DAILY 02/01/25 quetiapine 100 mg tablet 100 mg PO QPM 02/01/2503/18 quetiapine 50 mg tablet 50 mg PO QAM 02/01/25 levetiracetam 500 mg tablet 500 mg PO BID #180 tabs 03/18/25 (Keppra) lorazepam 0.5 mg tablet (Ativan) 0.5 mg PO DAILY PRN a nxiety 03/18/25 03/18/25 escitalopram oxalate 20 mg tablet 20 mg PO DAILY 03/1903/19/25 divalproex 250 mg tablet,delayed 250 mg PO BID #60 tab s 03/20/25 release PHYSICAL EXAM AT DISCHARGE Vital Signs: Vital Signs x48h Temp Pulse Resp BP Pulse Ox 03/20/25 14:00 92 13 132/89 H 95 03/20/25 13:00 104 H 12 123/86 98 03/20/25 12:00 36.7 C 102 H 12 157/109 H 94 03/20/25 11:00 107 H 25 H 120/81 95 03/20/25 10:00 87 12 117/73 95 03/20/25 09:00 91 10 L 122/76 94 03/20/25 08:00 36.7 C 99 18 155/99 H 95 LABS 03/20/25 05:33 03/20/25 05:33 Discharge Plan Discharge Patient Disposition: Home, Self Care Condition: Fair Medically Cleared Date:: 03/20/25 Prescriptions: New divalproex 250 mg Tablet,Delayed Release (Dr/Ec) 250 mg PO BID Qty: 60 0RF Continued amlodipine 2.5 mg tablet 2.5 mg PO DAILY quetiapine 100 mg tablet 100 mg PO QPM quetiapine 50 mg tablet 50 mg PO QAM Rx Instructions: before breakfast levetiracetam [Keppra] 500 mg tablet 500 mg PO BID Qty: 180 0RF lorazepam [Ativan] 0.5 mg tablet 0.5 mg PO DAILY PRN (Reason: anxiety) escitalopram oxalate 20 mg tablet 20 mg PO DAILY Diet: Regular Interventions: Belongings Inventory Last Done: 03/17/25 16:16 Health Concerns: I am dictating this note for the sake of your sister. You have cognitive delays since . And you also have early onset frontal dementia. You used to live with your family. But then you had been admitted several times in December of this year for a low sodium. You were admitted to [facility] in [place]. They figured out that you had something called psychogenic polydipsia. You were discharged from [facility] to a assisted. That assisted is now on this [place]. You have now been seen twice for a low sodium again. The low sodium is from you drinking too much water. The treatment for low sodium is restricting water intake. And treating with salt water in your veins. We gave you a very concentrated salt solution in your vein twice. And then maintained an IV with salt water. We have to do this very slowly otherwise you suffer permanent brain damage. So we alternated between giving you salt water and sugar water to maintain your sodium at a safe level. We think you are now safe to go home. Your neurologist did call us and states that we need to be able to control your behavior. You have a type of obsessive- compulsive disorder that causes you to drink too much water. They have asked me to start you on Depakote. Discharge instructions 1. A new medication of Depakote has been started. It is twice a day. Please see your neurologist Dr. Sauceda in follow-up and she may increase your Depakote dose or may increase it to twice a day. 2. I know this is very hard for you to do but you cannot drink more than a liter of water a day. If you have to drink more fluid, try drinking Pedialyte or Gatorade. 3. Please see your primary care provider in follow-up. You have Dr. Lashell Pillai listed as your PCP with your home. Print Language: Qatari Patient Instructions: Hyponatremia Dc Follow-up Care: Rosas Lobo DO [Other] Joi Sauceda MD [Other] Vitals documented within 30 minutes of discharge?: Yes
[2025-03-20 14:04] VITALS: O2SAT 95
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
[2025-03-20 15:56] VITALS: BP 126/80; TEMP 98.9
== END 2025-03-20 15:56 | disposition home or self-care (01) ==
LOC: ICU 12:33 → ED 12:33 → ICU 14:56
PROVIDERS: ADMIT Internal Medicine; ATTEND Internal Medicine

== ENCOUNTER 2025-04-16 11:21 | Inpatient (IN) ==
--- NOTE | 2025-04-16 11:38 | ED Physician Documentation ---
History of Present Illness Stated complaint Stated Complaint: ODD BEHAVIOR Chief complaint Chief Complaint: Neuro History obtained from History obtained from: Patient History of Present Illness Timing: Prior to arrival Additonal information Additional information: Patient is a 49-year-old male presenting to the emergency department with past medical history of psychogenic polydipsia, history of autism, history of anxiety presenting from [facility] facility for concerns of hyponatremia. Patient has been drinking out of the toilet again which causes significant hyponatremia. Patient appears to be at his normal mentation today. He has a sister who is his POA. Meds/Allgy Home Medications Ambulatory Orders Medication Instructions Recorded Confirmed amlodipine 2.5 mg tablet 2.5 mg PO DAILY 02/01/25 quetiapine 100 mg tablet 100 mg PO BID 02/01/2504/16 levetiracetam 500 mg tablet 500 mg PO BID #180 tabs 04/16/25 (Keppra) lorazepam 0.5 mg tablet (Ativan) 0.5 mg PO TID PRN anx iety 03/18/25 04/16/25 escitalopram oxalate 20 mg tablet 20 mg PO DAILY 03/1904/16/25 divalproex 500 mg tablet,delayed 500 mg PO BID 5 04/16/25 release ibuprofen 400 mg tablet 400 mg PO Q6H PRN pain 04/1604/16/25 gopvopcm-bct-spgek acid 0.4 1 tab PO DAILY 04/16/25 mg-lycopene 300 mcg-lutein 250 mcg tablet (Century Adults 50 Plus) trazodone 100 mg tablet 100 mg PO QPM PRN insomnia 0 04/16/25 04/16/25 Allergies Allergies Allergy/AdvReac Type Severity Reaction Status Date / Time No Known Drug Allergies Allergy Verified 03/17/25 12:37 PFSH Active Problems All Active Problems Psychogenic polydipsia (Acute) Acute hyponatremia (Acute) OCD (obsessive compulsive disorder) (Acute) Frontotemporal dementia (Acute) Anxiety (Acute) Laceration of head (Acute) Medical History Medical History Psychogenic polydipsia Dementia Seizure Psychogenic polydipsia MRI of head 12/2024 at [facility] advanced ischemic vascular disease. BC he tries to swallow foods whole, changed to pureed diet 01/2025 admit. Impulsive and drinks from toilet at [facility] and at [facility] Dementia Social History Social History Smoking Status: Smoker with current status unk Second hand tobacco smoke exposure: No Do you dip or chew tobacco?: No Do you vape?: No Level: Independent Do you feel safe in your home environment?: Yes History of physical, verbal, emotional, or financial abuse?: No POLST Patient has POLST: No Exam Exam Vital Signs: Vital Signs x48h Temp Pulse Resp BP Pulse Ox 04/16/25 11:21 36.9 C 93 18 140/110 H 97 04/16/25 11:09 140/110 H 97 Constitutional normal general appearance Patient awake alert answering questions no acute distress repetitively asking for a drink of water HENMT normocephalic, head/scalp atraumatic and hearing grossly normal bilaterally Eyes PERRL, EOMs intact bilaterally and conjunctivae normal Neck/C-Spine visual inspection normal Chest inspection of chest normal Respiratory breath sounds equal bilaterally, normal respiratory effort and clear to auscultation bilaterally Cardiovascular normal heart rate noted, regular rhythm noted, no gallop and no rub Extremities normal to inspection No swelling in extremities on examination. Skin skin color normal, no rash, no lesions and no ecchymosis noted Results Vitals Vitals: Vital Signs - 24 hr 04/16/25 11:09 04/16/25 11:09 04/16/25 11:21 Temperature 36.9 C Temperature Source Temporal Artery Scan Pulse Rate 93 Respiratory Rate 18 Blood Pressure 140/110 H 140/110 H 140/110 H O2 Saturation 97 97 97 O2 Source Room air Pain Intensity 0 04/16/25 12:09 04/16/25 12:09 Temperature Temperature Source Pulse Rate 80 Respiratory Rate 16 Blood Pressure 116/73 116/73 O2 Saturation 97 94 O2 Source Pain Intensity Oxygen O2 Source Room air Labs Labs: Laboratory Tests 04/16/25 04/16/25 11:32 11:34 WBC 2.3 L RBC 4.34 L Hgb 13.2 L Hct 36.3 L MCV 83.6 MCH 30.4 MCHC 36.4 H RDW 11.9 L Plt Count 123 L MPV 8.9 Neut # (Auto) 1.2 L Lymph # (Auto) 0.5 L Amelia # (Auto) 0.6 Eos # (Auto) 0.0 Baso # (Auto) 0.0 Absolute Nucleated RBC 0.00 Nucleated RBC % 0.0 Manual Slide Review Indicated Platelet Estimate DECREASED (<130,000) RBC Morph Micro Appear 2+ ANISOCYTOSIS Sodium 122 L Potassium 3.7 Chloride 87 L Carbon Dioxide 26 Anion Gap 9.0 BUN 8 Creatinine 0.7 Estimated GFR (MDRD) 119 Glucose 114 H Calcium 8.9 Magnesium 1.7 Total Bilirubin 0.6 AST 25 ALT 23 Alkaline Phosphatase 44 Total Protein 6.6 Albumin 4.2 Globulin 2.4 Albumin/Globulin Ratio 1.8 Urine Color LT. YELLOW Urine Clarity CLEAR Urine pH 7.5 Ur Specific [place] 1.005 Urine Protein NEGATIVE Urine Glucose (UA) NEGATIVE Urine Ketones NEGATIVE Urine Occult Blood NEGATIVE Urine Nitrite NEGATIVE Urine Bilirubin NEGATIVE Urine Urobilinogen 0.2 (NORMAL) Ur Leukocyte Esterase NEGATIVE Ur Microscopic Review NOT INDICATED Urine Culture Comments NOT INDICATED Urine Creatinine 6.6 Urine Sodium < 10.0 PD Medical Decision Making ED course Complexity details: reviewed old records and reviewed results ED course: Patient 49-year-old male presenting to the emergency department with history of autism history of psychogenic polydipsia and currently residing in [facility] facility he has a history of hyponatremia secondary to psychogenic polydipsia and has been found drinking out of toilets again. On arrival patient requesting water but very easily distracted and follows commands. He is ANO x 3 here in the ED appears to be at his normal baseline mentation according to previous notes. Patient most recently was here back in February for hyponatremia and was admitted to the ICU at that time. Vital stable here in the emergency department afebrile nontachycardic saturating well on room air. He has leukopenia on his labs as well as some anemia and thrombocytopenia which do appear new, Additionally he has significant hyponatremia at 122. I discussed with hosptilaist Dr. Downs, IV fluids normal saline were started and patient will be admitted for further treatment. He will be admitted to ICU for close monitoring. patient is agreeable with this plan. Discharge Plan Discharge Patient Disposition: [facility] DC/Xfer Condition: Stable Clinical Impression: Anxiety, Acute hyponatremia, Psychogenic polydipsia Interventions: ED Admission Assessment Last Done: 04/16/25 14:14 Vitals documented within 30 minutes of discharge?: Yes
[2025-04-16 11:40] LABS: HCT - HEMATOCRIT 36.3 % (42.0-52.0); HGB - HEMOGLOBIN 13.2 g/dL (14.0-18.0); MEAN PLATELET VOLUME 8.9 fL (7.4-11.4); NRBC ABSOLUTE COUNT (AUTO) 0.00 x10^3/uL; NUCLEATED RED BLOOD CELLS AUTO 0.0 /100WBC; PLT - PLATELET COUNT 123 10^3/uL (130-450); RED CELL DISTRIBUTION WIDTH 11.9 % (12.0-15.0)
[2025-04-16 11:44] LABS: GLUCOSE, URINE (UA) NEGATIVE (NEGATIVE); KETONES,URINE (UA) NEGATIVE (NEGATIVE); OCCULT BLOOD,URINE NEGATIVE (NEGATIVE)
[2025-04-16 11:53] LABS: PLATELET ESTIMATE, MANUAL DECREASED (<130,000) (NORMAL); RBC MORPHOLOGY (MULTIPLE) 2+ ANISOCYTOSIS (NORMAL); SLIDE REVIEW? Indicated
[2025-04-16 11:55] LABS: ALT ALANINE AMINOTRANSFERASE 23.0 IU/L (10-60); AST ASPARTATE AMINOTRANSFERASE 25.0 IU/L (10-42); BUN - BLOOD UREA NITROGEN 8.0 mg/dL (6-20); CARBON DIOXIDE - CO2 26.0 mmol/L (21-32); CREATININE 0.7 mg/dL (0.6-1.3); GFR - MDRD 119.0 (>89)
[2025-04-16] MEDS: SODIUM CHLORIDE 0.9% 1,000 ML IV STA (12:17)
--- NOTE | 2025-04-16 13:11 | PHARMACY PROGRESS NOTE ---
Best Possible Medication History Admit Date and Time: 04/16/25 [id number] Home Medications Medication Instructions Recorded Confirmed Type amlodipine 2.5 mg tablet 2.5 mg PO DAILY 02/01/25 History quetiapine 100 mg tablet 100 mg PO BID 02/01/2504/16 History levetiracetam 500 mg tablet 500 mg PO BID #180 tabs 04/16/25 Rx (Keppra) lorazepam 0.5 mg tablet (Ativan) 0.5 mg PO TID PRN anx iety 03/18/25 04/16/25 History escitalopram oxalate 20 mg tablet 20 mg PO DAILY 03/1904/16/25 History divalproex 500 mg tablet,delayed 500 mg PO BID 5 04/16/25 History release ibuprofen 400 mg tablet 400 mg PO Q6H PRN pain 04/1604/16/25 History yqvgmlft-any-wbfig acid 0.4 1 tab PO DAILY 04/16/25 History mg-lycopene 300 mcg-lutein 250 mcg tablet (Century Adults 50 Plus) trazodone 100 mg tablet 100 mg PO QPM PRN insomnia 0 04/16/25 04/16/25 History Processed by: Pharmacy Medications reviewed in ED?: Yes Medication History completed: Yes Patient Interview: Pt unable to participate Secondary Source(s): Facility MAR as ONLY source [facility] Statement: As the person ultimately responsible for medication therapy, providers are able to order a medication from an existing home medication list in [facility] via the "Reconcile Routine" prior to Confirmation of that medication by network support analyst. Such practice is discouraged except when the physician, in their clinical judgment, deems that a medical need exists for a medication without regard to previous use.
--- NOTE | 2025-04-16 13:36 | HISTORY & PHYSICAL EXAMINATION ---
Chief Complaint Chief Complaint Chief Complaint: Hyponatremia History of Present Illness Admitted From Admitted From:: [facility] History Obtained From Records Reviewed: EMR History obtained from: Patient Exam Limitations: Poor historian given underlying medical conditions History of Present Illness HPI Comment/Other: Patient is a 49-year-old male with a history of frontotemporal dementia, psychogenic polydipsia, and recurrent episodes of hyponatremia who presents for the same. Per ER provider who spoke with [facility], the correction patient resides at, patient has been drinking from the toilet once again. They were concerned that this may be causing hyponatremia again, so he was sent to the emergency room. Patient does not recall why he is here. He denies any weaknesses, dizziness, headaches, confusion, pain. Of note, this is now the patient's third visit for the same problem. He was admitted on 02/01, 03/17, and again today. At his last visit, neurology was spoken with, and they recommended the addition of Depakote. He has continued to take this. Plan was also to follow-up with neuropsychiatry. Past medical history includes seizure disorder, likely triggered by hyponatremia. Cognitive delay since childhood, frontotemporal dementia, as well as hypertension. Medications include amlodipine, Depakote, Lexapro, Keppra, Ativan as needed, Seroquel, and trazodone. Patient has no known drug allergies. Per him, although he is likely an unreliable historian, he denies any alcohol, tobacco, recreational drug use, and has never had any surgeries before. In the ER, patient was vitally stableblood pressure was 140/110, heart rate was 93, his respiratory rate was 18, saturating 97% on room air, and was afebrile. Lab work was completedhe does have a pancytopenia which is new for him. His white blood cell count is down from his normal to 2.3. His hemoglobin is 13.2. His platelets are 123, and he is normally around 200. Manual slide review was completed. His sodium was low at 122. His creatinine is within normal limits. His urine was normal. This visit, his urine sodium is less than 10. He received 1 L of IV fluids in the ER, and his sodium improved to 126. He was admitted for hyponatremia. Diet: Regular, free water restriction Dispo: Likely back to [facility] Code: DNR, POLST reviewed from 03/15 DVT: Lovenox Meds/Allgy Home Medications Ambulatory Orders Medication Instructions Recorded Confirmed amlodipine 2.5 mg tablet 2.5 mg PO DAILY 02/01/25 quetiapine 100 mg tablet 100 mg PO BID 02/01/2504/16 levetiracetam 500 mg tablet 500 mg PO BID #180 tabs 04/16/25 (Keppra) lorazepam 0.5 mg tablet (Ativan) 0.5 mg PO TID PRN anx iety 03/18/25 04/16/25 escitalopram oxalate 20 mg tablet 20 mg PO DAILY 03/1904/16/25 divalproex 500 mg tablet,delayed 500 mg PO BID 5 04/16/25 release ibuprofen 400 mg tablet 400 mg PO Q6H PRN pain 04/1604/16/25 irrvxmya-eyz-slhfz acid 0.4 1 tab PO DAILY 04/16/25 mg-lycopene 300 mcg-lutein 250 mcg tablet (Century Adults 50 Plus) trazodone 100 mg tablet 100 mg PO QPM PRN insomnia 0 04/16/25 04/16/25 Allergies Allergies Allergy/AdvReac Type Severity Reaction Status Date / Time No Known Drug Allergies Allergy Verified 03/17/25 12:37 [facility] Active Problems All Active Problems Psychogenic polydipsia (Acute) Acute hyponatremia (Acute) OCD (obsessive compulsive disorder) (Acute) Frontotemporal dementia (Acute) Anxiety (Acute) Laceration of head (Acute) Medical History Medical History Psychogenic polydipsia Dementia Seizure Psychogenic polydipsia MRI of head 12/2024 at [facility] advanced ischemic vascular disease. BC he tries to swallow foods whole, changed to pureed diet 01/2025 admit. Impulsive and drinks from toilet at [facility] and at [facility] Dementia Social History Social History Smoking Status: Smoker with current status unk Second hand tobacco smoke exposure: No Do you dip or chew tobacco?: No Do you vape?: No Level: Independent Do you feel safe in your home environment?: Yes History of physical, verbal, emotional, or financial abuse?: No POLST Patient has POLST: Yes POLST CPR Status: Do Not Attempt Resuscitation (DNAR) / Allow Natural Review of Systems Constitutional Denies: Fatigue, Fever, Chills, Malaise, Weakness or Poor appetite Eyes Denies: Pain, Irritation, Blurry vision, Vision loss, Diplopia or Eye discomfort Ears, nose, mouth, and throat Denies: Ear pain, Hearing loss, Tinnitus or Nose bleeds Cardiovascular Denies: Irregular heart rate, chest pain, palpitations, edema, Syncope or shortness of breath with exertion Respiratory Denies: Shortness of breath, Cough or Sputum production Gastrointestinal Denies: Abdominal pain, Abdominal distention, Nausea, Vomiting, Diarrhea or Constipation Genitourinary Denies: Painful urination, Urinary frequency or Urinary urgency Musculoskeletal Denies: Back pain, Extremity pain or Extremity swelling Integumentary/Breast Denies: Rash, Itching, Dryness or Redness Neurological Denies: Headache, General weakness, Weakness in extremities, Numbness in extremities, Abnormal gait or Dizziness Psychiatric Denies: Depression, Anxiety, Mood swings or Panic attacks Endocrine Reports: Excessive thirst; Denies: Excessive urination or Fatigue Hematologic/Lymphatic Denies: Anemia Allergic/Immunologic Denies: Hives Prior Level of Functionality: Lives at [facility]. Dependent for most ADLs. Exam Exam Vital Signs: Vital Signs x48h Temp Pulse Pulse Resp BP BP Pulse Ox 04/16/25 15:00 84 14 131/81 H 98 04/16/25 13:49 78 16 115/76 97 04/16/25 13:12 94 04/16/25 12:44 134/73 H 97 04/16/25 12:09 116/73 94 04/16/25 12:09 80 16 116/73 97 04/16/25 11:21 98.4 F 93 18 140/110 H 97 04/16/25 11:09 140/110 H 97 04/16/25 11:09 140/110 H 97 Patient appears younger than stated age. Calm, cooperative, redirectable. Repeats what is asked. Constitutional normal general appearance, no apparent distress, average body habitus and no limitations HENMT normocephalic, head/scalp atraumatic and hearing grossly normal bilaterally Eyes PERRL, EOMs intact bilaterally and conjunctivae normal Neck/C-Spine visual inspection normal and trachea midline Chest inspection of chest normal Respiratory breath sounds equal bilaterally, normal respiratory effort, clear to auscultation bilaterally, no wheezes, no rales and no retractions Cardiovascular normal heart rate noted, regular rhythm noted, no gallop, no rub and no murmur Gastrointestinal abdomen normal to inspection, abdomen soft to palpation, nontender to palpation and normoactive bowel sounds Genitourinary no CVA tenderness and bladder normal to palpation Extremities normal to inspection, normal to palpation, no tenderness and full ROM Neurology no movement abnormality noted and no focal motor deficit noted Psychiatry mental status grossly normal, thought process abnormality noted and cooperative Oriented to self. Able to tell me his sisters' names. Knows he's in hospital. Skin skin color normal Conclusion/Plan Problem List (1) Acute hyponatremia: Plan: This hyponatremia is 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 Patient was [facility]. His urine sodium is less than 10. Urine osmolality is pending. If this is low, will be consistent with this diagnosis. Presented with a sodium of 122. Improved to 126 with 1L of 0.9 normal saline fluids. Hold maintenance fluids at this time. Continue to trend sodium evry 4 hours. Goal correction is 6-8 mill equivalents over 24 hours. If overcorrects, will start D5. Patient was recently admitted from 02/01 and 03/17 for similar reasons. At his last visit, he was started on Depakote for impulsivity by his neurologist. (2) Psychogenic polydipsia: Plan: Patient needs continued close follow-up with neurology, neuropsychiatry. Continue Depakote 500 mg twice daily. (3) Frontotemporal dementia: Plan: Continue home medications, Lexapro, and Seroquel at night. (4) Seizure: Plan: During his initial admission, he did have a seizure. May have been attributed to the hyponatremia. Previous hospitalist spoke with the neurologist, who recommended Keppra, 500 mg twice a day. This will be continued at this time. Lab Results Lab results reviewed: Yes 04/16/25 11:34 04/16/25 13:07 Diagnostic Imaging Results Diagnostic Imaging Results: positive Final report reviewed Core Measures Anticipated LOS I expect patient to be DC'd or transferred within 96 hours.: Yes Issues Hospital Issues and Management Plan: None anticipated. DVT/VTE - Prophylaxis VTE/DVT Device ordered at admit?: No VTE/DVT Prophylaxis med ordered at admit?: Yes
[2025-04-16] MEDS ORDERED: ONDANSETRON ODT 4 MG TABLET TL PRN (14:06)
[2025-04-16] MEDS ORDERED: ACETAMINOPHEN 325 MG TABLET PO PRN (14:06)
[2025-04-16] MEDS ORDERED: SODIUM CHLORIDE FLUSH 0.9% 10 ML SYRINGE IVP PRN (14:06)
[2025-04-16] MEDS: SODIUM CHLORIDE FLUSH 0.9% 10 ML SYRINGE IVP SCH (17:56)
[2025-04-16] MEDS: DEXTROSE 5% 1,000 ML IV SCH (17:56)
[2025-04-16] MEDS: DIVALPROEX DR 250 MG TABLET PO SCH (20:27)
[2025-04-17 05:31] LABS: HCT - HEMATOCRIT 38.5 % (42.0-52.0); HGB - HEMOGLOBIN 13.0 g/dL (14.0-18.0); MEAN PLATELET VOLUME 9.2 fL (7.4-11.4); PLT - PLATELET COUNT 121.0 10^3/uL (130-450); RED CELL DISTRIBUTION WIDTH 12.7 % (12.0-15.0)
[2025-04-17 05:38] LABS: VBG PH 7.448 (7.31-7.41)
[2025-04-17 05:50] LABS: BUN - BLOOD UREA NITROGEN 7.0 mg/dL (6-20); CARBON DIOXIDE - CO2 28.0 mmol/L (21-32); CREATININE 0.9 mg/dL (0.6-1.3); GFR - MDRD 89.0 (>89); PHOSPHORUS 3.3 mg/dL (2.5-5.0)
[2025-04-17] MEDS: POTASSIUM CHLORIDE 20 MEQ TABLET PO ONE (08:27)
[2025-04-17] MEDS: ESCITALOPRAM 10 MG TABLET PO SCH (08:28)
[2025-04-17] MEDS: ENOXAPARIN 40 MG/0.4 ML SYRINGE SUBQ SCH (08:29)
--- NOTE | 2025-04-17 16:12 | PROVIDER PROGRESS NOTE ---
Subjective Prog Note Date Prog Note Date: 04/17/25 Prog Note Time: 16:07 Subjective Subjective: Alert. Cooperative. Keeps on asking if he is in custodial or if the police are outside his door. This is in spite of several attempts at orienting him. He denies any abdominal pain, chest pain, limb pain. Denies shortness of breath. Current Medications Current Medications Current Medications: Current Medications Generic Name Dose Route Start Last Admin Trade Name Freq PRN Reason Stop Dose Admin Acetaminophen 650 mg 04/16/25 14:06 Acetaminophen 325 Mg Tablet PO Q4HR PRN Pain 1 to 4, or Fever Amlodipine Besylate 2.5 mg 04/17/25 09:00 04/17/25 08:27 Amlodipine 5 Mg Tablet PO Not Given DAILY BERNICE Divalproex Sodium 500 mg 04/16/25 21:00 04/17/25 08:[address] 250 Mg Tablet PO 500 mg BID BERNICE Administration Enoxaparin Sodium 40 mg 04/17/25 09:00 04/17/25 08:29 Enoxaparin 40 Mg/0.4 Ml Syringe SUBQ 40 mg DAILY BERNICE Administration Escitalopram Oxalate 20 mg 04/17/25 09:00 04/17/25 08:28 Escitalopram 10 Mg Tablet PO 20 mg DAILY BERNICE Administration Dextrose 1,000 mls @ 125 mls/hr 04/16/25 18:00 04/17/25 12:33 D5w IV 125 mls/hr .Q8H BERNICE Administration Levetiracetam 250 mg 04/16/25 21:00 04/17/25 08:28 Levetiracetam 250 Mg Tablet PO 250 mg BID BERNICE Administration Lorazepam 0.5 mg 04/16/25 14:56 Lorazepam 0.5 Mg Tablet PO TID PRN Anxiety Ondansetron HCl 4 mg 04/16/25 14:06 Ondansetron Odt 4 Mg Tablet TL Q6HR PRN Nausea / Vomiting Quetiapine Fumarate 50 mg 04/16/25 21:00 04/17/25 08:28 Quetiapine 25 Mg Tablet PO 50 mg BID BERNICE Administration Quetiapine Fumarate 100 mg 04/16/25 21:00 04/17/25 08:28 Quetiapine 100 Mg Tablet PO 100 mg BID BERNICE Administration Sodium Chloride 10 ml 04/16/25 17:00 04/17/25 08:29 Sodium Chloride Flush 0.9% 10 Ml Syringe IVP Not Given 0100,0900,1700 BERNICE Sodium Chloride 10 ml 04/16/25 14:06 Sodium Chloride Flush 0.9% 10 Ml Syringe IVP PRN PRN NEEDED PER PROVIDER ORDERS Trazodone HCl 100 mg 04/16/25 14:56 Trazodone 50 Mg Tablet PO QPM PRN Insomnia Objective Vital Signs/Intake & Output Reviewed Vital Signs: Yes Vital Signs: Vital Signs x48h Temp Pulse Resp BP Pulse Ox 04/17/25 16:00 69 13 110/63 96 04/17/25 15:00 36.6 C 67 12 111/60 97 04/17/25 14:00 72 13 128/74 97 04/17/25 13:00 75 16 115/75 98 04/17/25 12:00 83 15 111/66 98 04/17/25 11:00 70 12 99/58 L 96 04/17/25 10:00 67 23 114/69 97 04/17/25 09:00 74 11 L 121/77 99 Intake & Output: Intake & Output 04/14/25 04/15/25 04/16/25 04/17/25 23:59 23:59 23:59 23:59 Intake Total 2159 / 2159 2123 / 2123 Output Total 3130 / 3130 1900 / 1900 Balance -971 / -971 223 / 223 Weight (kg) 65 kg 65.5 kg Objective General Appearance: positive No acute distress, Alert and Other (White male that looks much younger than stated age) Eyes Bilateral: positive PERRL and EOMI ENT: positive No signs of dehydration Neck: positive No JVD; negative Stiff neck Respiratory: positive Chest non-tender, No respiratory distress and Breath sounds nml Cardiovascular: positive Regular rate & rhythm, No murmur and No gallop Abdomen: positive Non-tender, No organomegaly, Nml bowel sounds and No distention Skin: positive Color nml, Warm and Dry Extremities: positive Non-tender, Full ROM and Nml appearance Neurologic/Psychiatric: positive CN's nml (2-12), Motor nml, Disoriented to place, Disoriented to time and Other (Paranoid. Keeps on asking if he is in custodial, and when reassured he is not, is convinced that the police are outside the door.) Lab Results 04/17/25 05:20 04/17/25 13:00 Other Labs: Lab Results x24hrs 04/17/25 04/17/25 04/17/25 Range/Units 13:00 08:34 05:20 WBC 3.4 L (4.8-10.8) x10^3/uL RBC 4.36 L (4.70-6.10) 10^6/uL Hgb 13.0 L (14.0-18.0) g/dL Hct 38.5 L (42.0-52.0) % MCV 88.3 (80.0-94.0) fL MCH 29.8 (27.0-31.0) pg MCHC 33.8 (32.0-36.0) g/dL RDW 12.7 (12.0-15.0) % Plt Count 121 L (130-450) 10^3/uL MPV 9.2 (7.4-11.4) fL VBG pH 7.448 H (7.31-7.41) Ionized Calcium 1.12 (1.09-1.30) mmol/L Sodium 133 L 132 L 133 L (135-145) mmol/L Potassium 3.7 (3.5-4.5) mmol/L Chloride 98 L (101-111) mmol/L Carbon Dioxide 28 (21-32) mmol/L Anion Gap 7.0 (6-13) BUN 7 (6-20) mg/dL Creatinine 0.9 (0.6-1.3) mg/dL Estimated GFR (MDRD) 89 (>89) Glucose 99 (74-104) mg/dL Calcium 8.6 (8.5-10.3) mg/dL Phosphorus 3.3 (2.5-5.0) mg/dL Magnesium 2.3 (1.7-2.3) mg/dL Nasal Screen MRSA (PCR) (NEGATIVE) 04/17/25 04/16/25 04/16/25 Range/Units 01:25 21:15 16:47 WBC (4.8-10.8) x10^3/uL RBC (4.70-6.10) 10^6/uL Hgb (14.0-18.0) g/dL Hct (42.0-52.0) % MCV (80.0-94.0) fL MCH (27.0-31.0) pg MCHC (32.0-36.0) g/dL RDW (12.0-15.0) % Plt Count (130-450) 10^3/uL MPV (7.4-11.4) fL VBG pH (7.31-7.41) Ionized Calcium (1.09-1.30) mmol/L Sodium 132 L 134 L 132 L (135-145) mmol/L Potassium (3.5-4.5) mmol/L Chloride (101-111) mmol/L Carbon Dioxide (21-32) mmol/L Anion Gap (6-13) BUN (6-20) mg/dL Creatinine (0.6-1.3) mg/dL Estimated GFR (MDRD) (>89) Glucose (74-104) mg/dL Calcium (8.5-10.3) mg/dL Phosphorus (2.5-5.0) mg/dL Magnesium (1.7-2.3) mg/dL Nasal Screen MRSA (PCR) (NEGATIVE) 04/16/25 Range/Units 15:15 WBC (4.8-10.8) x10^3/uL RBC (4.70-6.10) 10^6/uL Hgb (14.0-18.0) g/dL Hct (42.0-52.0) % MCV (80.0-94.0) fL MCH (27.0-31.0) pg MCHC (32.0-36.0) g/dL RDW (12.0-15.0) % Plt Count (130-450) 10^3/uL MPV (7.4-11.4) fL VBG pH (7.31-7.41) Ionized Calcium (1.09-1.30) mmol/L Sodium (135-145) mmol/L Potassium (3.5-4.5) mmol/L Chloride (101-111) mmol/L Carbon Dioxide (21-32) mmol/L Anion Gap (6-13) BUN (6-20) mg/dL Creatinine (0.6-1.3) mg/dL Estimated GFR (MDRD) (>89) Glucose (74-104) mg/dL Calcium (8.5-10.3) mg/dL Phosphorus (2.5-5.0) mg/dL Magnesium (1.7-2.3) mg/dL Nasal Screen MRSA (PCR) NEGATIVE (NEGATIVE) Assessment/Plan Problem List (1) Acute hyponatremia: Impression: This hyponatremia is 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 Patient was found drinking out of the toilet bowl at his [facility] facility. Sodium was 122 on admission. Mentation is stable. With previous admissions he was confused, altered, tremulous. He is not with this admission. He is drinking out of the toilet bowel even when stool is in it. In the past he was given hypertonic saline. With this admission he has been given normal saline. Goal correction is 6-8 mill equivalents over 24 hours. - Overcorrected to 132 with the next blood draw. Then 134. As such, he was started on D5 and his sodium has been stable at 132 since that time on a D5 drip. Plan: Keep on D5 with every 6 hour monitoring. Later on this evening I will stop the D5 and most likely he will bounce to normal tomorrow. Anticipate discharge when his sodium is normal. Transferred from ICU to [facility] since he is following prompts and commands and does not need one-to-one (2) Psychogenic polydipsia: Impression: Patient needs continued close follow-up with neurology, neuropsychiatry. Continue Depakote 500 mg twice daily. He is sister and DPOA seeking a second opinion from [facility] neurology. (3) Frontotemporal dementia: Impression: Continue home medications, Lexapro, and Seroquel at night.We are following the instructions of his neurologist who has recommended: Increase his Seroquel to 150 mg twice daily, decrease his Keppra to 250 mg twice daily, for a week, and then stop entirely. She is currently out of office, and cannot be reached to confirm the former. Patient's DPOA is also interested in getting a neurology consult/second opinion from a neurologist at [facility]. (4) Seizure: Impression: During his first admission (this is his third), he did have a seizure. May have been attributed to the hyponatremia. Previous hospitalist at that time spoke with the neurologist, who recommended Keppra, 500 mg twice a day. Keppra has been decreased to 250 mg twice a day for a week and then to be stopped entirely.
--- NOTE | 2025-04-18 11:10 | PROVIDER PROGRESS NOTE ---
Subjective Subjective Subjective: He is alert, calm, cooperative. He is asking when he's going back to [facility]. He denies any abdominal pain, chest pain, limb pain. Denies shortness of breath. Current Medications Current Medications Current Medications: Current Medications Generic Name Dose Route Start Last Admin Trade Name Freq PRN Reason Stop Dose Admin Acetaminophen 650 mg 04/16/25 14:06 Acetaminophen 325 Mg Tablet PO Q4HR PRN Pain 1 to 4, or Fever Amlodipine Besylate 2.5 mg 04/17/25 09:00 04/18/25 09:27 Amlodipine 5 Mg Tablet PO 2.5 mg DAILY BERNICE Administration Divalproex Sodium 500 mg 04/16/25 21:00 04/18/25 09:[address] 250 Mg Tablet PO 500 mg BID BERNICE Administration Enoxaparin Sodium 40 mg 04/17/25 09:00 04/18/25 09:28 Enoxaparin 40 Mg/0.4 Ml Syringe SUBQ 40 mg DAILY BERNICE Administration Escitalopram Oxalate 20 mg 04/17/25 09:00 04/18/25 09:27 Escitalopram 10 Mg Tablet PO 20 mg DAILY BERNICE Administration Levetiracetam 250 mg 04/16/25 21:00 04/18/25 09:28 Levetiracetam 250 Mg Tablet PO 250 mg BID BERNICE Administration Lorazepam 0.5 mg 04/16/25 14:56 Lorazepam 0.5 Mg Tablet PO TID PRN Anxiety Ondansetron HCl 4 mg 04/16/25 14:06 Ondansetron Odt 4 Mg Tablet TL Q6HR PRN Nausea / Vomiting Quetiapine Fumarate 50 mg 04/16/25 21:00 04/18/25 09:28 Quetiapine 25 Mg Tablet PO 50 mg BID BERNICE Administration Quetiapine Fumarate 100 mg 04/16/25 21:00 04/18/25 09:28 Quetiapine 100 Mg Tablet PO 100 mg BID BERNICE Administration Sodium Chloride 10 ml 04/16/25 17:00 04/18/25 09:28 Sodium Chloride Flush 0.9% 10 Ml Syringe IVP 10 ml 0100,0900,1700 BERNICE Administration Sodium Chloride 10 ml 04/16/25 14:06 Sodium Chloride Flush 0.9% 10 Ml Syringe IVP PRN PRN NEEDED PER PROVIDER ORDERS Trazodone HCl 100 mg 04/16/25 14:56 Trazodone 50 Mg Tablet PO QPM PRN Insomnia Objective Vital Signs/Intake & Output Reviewed Vital Signs: Yes Vital Signs: Vital Signs x48h Temp Pulse Resp BP Pulse Ox 04/18/25 07:49 97.7 F 67 18 113/74 99 Intake & Output: Intake & Output 04/15/25 04/16/25 04/17/25 04/18/25 23:59 23:59 23:59 23:59 Intake Total 2159 / 2159 4087 / 4087 1705 / 1705 Output Total 3130 / 3130 2950 / 2950 1000 / 1000 Balance -971 / -971 1137 / 1137 705 / 705 Weight (kg) 65 kg 65.5 kg 65.5 kg Objective General Appearance: positive No acute distress, Alert and Other (White male that looks much younger than stated age) Eyes Bilateral: positive PERRL and EOMI ENT: positive No signs of dehydration Neck: positive No JVD; negative Stiff neck Respiratory: positive Chest non-tender, No respiratory distress and Breath sounds nml Cardiovascular: positive Regular rate & rhythm, No murmur and No gallop Abdomen: positive Non-tender, No organomegaly, Nml bowel sounds and No distention Skin: positive Color nml, Warm and Dry Extremities: positive Non-tender, Full ROM and Nml appearance Neurologic/Psychiatric: positive CN's nml (2-12), Motor nml, Disoriented to place, Disoriented to time and Other (Paranoid) Lab Results 04/17/25 05:20 04/18/25 08:53 Other Labs: Lab Results x24hrs 04/18/25 04/18/25 04/18/25 Range/Units 08:53 04:54 01:04 Sodium 134 L 135 133 L (135-145) mmol/L 04/17/25 04/17/25 04/17/25 Range/Units 20:51 16:44 13:00 Sodium 135 132 L 133 L (135-145) mmol/L Assessment/Plan Problem List (1) Acute hyponatremia: Impression: This hyponatremia is 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 Patient was found drinking out of the toilet bowl at his [facility] facility. Sodium was 122 on admission. Mentation is stable. With previous admissions he was confused, altered, tremulous. He is not with this admission. He is drinking out of the toilet bowel even when stool is in it. In the past he was given hypertonic saline. With this admission he has been given normal saline. Goal correction is 6-8 mill equivalents over 24 hours. Corrected appropriately. Now within normal limits. D5 stopped. Patient is medically cleared for discharge back to [facility]. (2) Psychogenic polydipsia: Impression: Patient needs continued close follow-up with neurology, neuropsychiatry. Continue Depakote 500 mg twice daily. He is sister and DPOA seeking a second opinion from [facility] neurology. Consulted Telepsychiatry for medication management recommendation. (3) Frontotemporal dementia: Impression: Continue home medications, Lexapro, and Seroquel at night. We are following the instructions of his neurologist who has recommended: Increase his Seroquel to 150 mg twice daily, decrease his Keppra to 250 mg twice daily, for a week, and then stop entirely. She is currently out of office, and cannot be reached to confirm the former, however the DPOA did send screenshots from her [employer] conversation. Patient's DPOA is also interested in getting a neurology consult/second opinion from a neurologist at [facility]. (4) Seizure: Impression: During his first admission (this is his third), he did have a seizure. May have been attributed to the hyponatremia. Previous hospitalist at that time spoke with the neurologist, who recommended Keppra, 500 mg twice a day. Keppra has been decreased to 250 mg twice a day for a week and then to be stopped entirely.
--- NOTE | 2025-04-18 11:10 | Discharge Summary ---
"Discharge Summary Admit Date: 04/16/25 Discharge Date: 04/19/25 Discharging Provider: Dr. Nelli Feldman Primary Care Provider: Dr. Sauceda Code Status: Do Not Attempt Resuscitation Discharge Facility Name: [facility] DIAGNOSES Discharge Diagnoses with Status of Each Condition: Acute hyponatremiaattributed to known psychogenic polydipsia. Sodium 122 on admission, corrected appropriately over the past few days. Telepsych consult was placed for this, with no new recommendations at this time. Psychogenic polydipsiacontinue Depakote 500 mg twice a day. Needs continued and close follow-up with neurology, neuropsychiatry. Frontotemporal dementiahis Seroquel was increased to 150 mg twice a day, and his Keppra was decreased to 250 mg twice daily, which she will continue for 3 additional days, and then will stop altogether. Plan is for close follow-up in the outpatient setting. Seizureduring his first admission, this is his third, patient had a seizure, which was likely attributed to the hyponatremia. Keppra will be weaned off as stated above. HPI History of Present Illness: Patient is a 49-year-old male with a history of frontotemporal dementia, psychogenic polydipsia, and recurrent episodes of hyponatremia who presents for the same. Per ER provider who spoke with [facility], the senior living patient resides at, patient has been drinking from the toilet once again. They were concerned that this may be causing hyponatremia again, so he was sent to the emergency room. Patient does not recall why he is here. He denies any weaknesses, dizziness, headaches, confusion, pain. Of note, this is now the patient's third visit for the same problem. He was admitted on 02/01, 03/17, and again today. At his last visit, neurology was spoken with, and they recommended the addition of Depakote. He has continued to take this. Plan was also to follow-up with neuropsychiatry. Past medical history includes seizure disorder, likely triggered by hyponatremia. Cognitive delay since childhood, frontotemporal dementia, as well as hypertension. Medications include amlodipine, Depakote, Lexapro, Keppra, Ativan as needed, Seroquel, and trazodone. Patient has no known drug allergies. Per him, although he is likely an unreliable historian, he denies any alcohol, tobacco, recreational drug use, and has never had any surgeries before. In the ER, patient was vitally stableblood pressure was 140/110, heart rate was 93, his respiratory rate was 18, saturating 97% on room air, and was afebrile. Lab work was completedhe does have a pancytopenia which is new for him. His white blood cell count is down from his normal to 2.3. His hemoglobin is 13.2. His platelets are 123, and he is normally around 200. Manual slide review was completed. His sodium was low at 122. His creatinine is within normal limits. His urine was normal. This visit, his urine sodium is less than 10. He received 1 L of IV fluids in the ER, and his sodium improved to 126. He was admitted for hyponatremia. CONSULTS | PROCEDURES Consultations: Telepsych evaluation ALLERGIES Allergies Allergy/AdvReac Type Severity Reaction Status Date / Time No Known Drug Allergies Allergy Verified 03/17/25 12:37 MEDICATIONS Ambulatory Orders Medication Instructions Recorded Confirmed amlodipine 2.5 mg tablet 2.5 mg PO DAILY 02/01/25 quetiapine 100 mg tablet 100 mg PO BID 02/01/2504/16 lorazepam 0.5 mg tablet (Ativan) 0.5 mg PO TID PRN anx iety 03/18/25 04/16/25 escitalopram oxalate 20 mg tablet 20 mg PO DAILY 03/1904/16/25 divalproex 500 mg tablet,delayed 500 mg PO BID 5 04/16/25 release ibuprofen 400 mg tablet 400 mg PO Q6H PRN pain 04/1604/16/25 [id number] acid 0.4 1 tab PO DAILY 04/16/25 mg-lycopene 300 mcg-lutein 250 mcg tablet (Century Adults 50 Plus) trazodone 100 mg tablet 100 mg PO QPM PRN insomnia 0 04/16/25 04/16/25 levetiracetam 250 mg tablet 250 mg PO BID 3 days #6 ta bs 04/19/25 quetiapine 100 mg tablet 100 mg PO BID 30 days #60 ta bs 04/19/25 quetiapine 25 mg tablet 50 mg (2 x 25 mg) PO BID 30 days 04/19/25 #120 tabs PHYSICAL EXAM AT DISCHARGE Vital Signs: Vital Signs x48h Temp Pulse Resp BP Pulse Ox O2 Flow Rate 04/19/25 12:03 97.9 F 89 16 126/75 96 0 General Appearance: positive No acute distress, Alert and Other (White male that looks much younger than stated age) Eyes Bilateral: positive PERRL and EOMI ENT: positive No signs of dehydration Neck: positive No JVD; negative Stiff neck Respiratory: positive Chest non-tender, No respiratory distress and Breath sounds nml Cardiovascular: positive Regular rate & rhythm, No murmur and No gallop Abdomen: positive Non-tender, No organomegaly, Nml bowel sounds and No distention Skin: positive Color nml, Warm and Dry Extremities: positive Non-tender, Full ROM and Nml appearance Neurologic/Psychiatric: positive CN's nml (2-12), Motor nml, Disoriented to place, Disoriented to time and Other (Paranoid) LABS 04/19/25 05:36 04/19/25 05:36 FOLLOW UP Follow Up: Follow up with neurology. Follow up with psychiatry. TIME SPENT Time Spent in Discharge (Minutes): 35 Discharge Plan Discharge Patient Disposition: Home, Self Care Condition: Stable Prescriptions: New levetiracetam 250 mg Tablet 250 mg PO BID 3 Days Qty: 6 0RF Rx Instructions: Continue Keppra 250 mg twice a day for 3 additional days. And then stop. quetiapine 25 mg Tablet 50 mg PO BID 30 Days Qty: 120 0RF quetiapine 100 mg Tablet 100 mg PO BID 30 Days Qty: 60 0RF Continued amlodipine 2.5 mg tablet 2.5 mg PO DAILY quetiapine 100 mg tablet 100 mg PO BID lorazepam [Ativan] 0.5 mg tablet 0.5 mg PO TID PRN (Reason: anxiety) escitalopram oxalate 20 mg tablet 20 mg PO DAILY divalproex 500 mg tablet,delayed release (DR/EC) 500 mg PO BID trazodone 100 mg tablet 100 mg PO QPM PRN (Reason: insomnia) ibuprofen 400 mg tablet 400 mg PO Q6H PRN (Reason: pain) Century Adults 50 Plus 0.4 mg-300 mcg- 250 mcg tablet 1 tab PO DAILY Discontinued levetiracetam [Keppra] 500 mg tablet 500 mg PO BID Qty: 180 0RF Activity Restrictions: Activity as Tolerated Diet: Regular Health Concerns: These discharge instructions are more for your caretakers, as well as her sister. You came in because your sodium levels were found to be low again. This is likely due to you drinking in excess of water. Per sister's communication with the neurologist, we have decreased the Keppra to 250 mg twice a day, which she will take for an additional 3 days. After this, please stop the Keppra indefinitely. Please also increase your Seroquel to 250 mg twice a day instead of the 100 mg twice a day that you are taking. While you are here, we did obtain a telepsych evaluation, and they did not have any medication changes or recommendations at this time. Please continue to maintain fluid restriction at your facility. We are glad you are feeling better, thank you for allowing us to take care of you. Print Language: Divehi Patient Instructions: Hyponatremia Dc Stand Alone Forms: PCP List Vitals documented within 30 minutes of discharge?: Yes"
--- NOTE | 2025-04-18 15:03 | TELEPSYCH PHYS NOTE ---
[facility] Telepsych Consult Consult Date: 04/18/25 Name of Referring Provider:: Med Floor Reason for Consult: Psych Eval Suicide Risk Sreening (ASQ Tool) In the past few weeks, have you wished you were ?: No In the past few weeks, have you felt that you or your family would be better off if you were ?: No In the past week, have you been having thoughts about killing yourself?: No Have you ever tried to kill yourself?: No Assessment Language: Italian Notes: NOTES REVIEWED: cc: Rere Lemos&[facility] report # [id number] Patient's DPOA was spoken with, She had recently spoken with his neurologist, Dr. Sauceda, who had recommended the following changes: Increase his Seroquel to 150 mg twice daily, decrease his Keppra to 250 mg twice daily, for a week, and then stop entirely. She is currently out of offce, and cannot be reached to confirm the above, but I did make the above medication changes. Patient's DPOA is also interested in getting a neurology consult/second opinion from a neurologist at [facility]. History of Present Illness HPI Comment/Other: Patient is a 49-year-old male with a history of frontotemporal dementia, psychogenic polydipsia, and recurrent episodes of hyponatremia who presents for the same. Per ER provider who spoke with [facility], the senior care patient resides at, patient has been drinking from the toilet once again. They were concerned that this may be causing hyponatremia again, so he was sent to the emergency room. Patient does not recall why he is here. He denies any weaknesses, dizziness, headaches, confusion, pain. Of note, this is now the patient's third visit for the same problem. He was admitted on 02/01, 03/17, and again today. At his last visit, neurology was spoken with, and they recommended the addition of Depakote. He has continued to take this. Plan was also to follow-up with neuropsychiatry. Past medical history includes seizure disorder, likely triggered by hyponatremia. Cognitive delay since childhood, frontotemporal dementia, as well as hypertension. Medications include amlodipine, Depakote, Lexapro, Keppra, Ativan as needed, Seroquel, and trazodone. Patient has no known drug allergies. Per him, although he is likely an unreliable historian, he denies any alcohol, tobacco, recreational drug use, and has never had any surgeries before. In the ER, patient was vitally stableblood pressure was 140/110, heart rate was 93, his respiratory rate was 18, saturating 97% on room air, and was afebrile. Lab work was completedhe does have a pancytopenia which is new for him. His white blood cell count is down from his normal to 2.3. His hemoglobin is 13.2. His platelets are 123, and he is normally around 200. Manual slide review was completed. His sodium was low at 122. His creatinine is within normal limits. His urine was normal. This visit, his urine sodium is less than IO. He received 1 Lof IV fluids in the ER, and his sodium improved to 126. He was admitted for hyponatremia Assessment/ Plan Problem I ist (1) Acute hyponatremia: Impression : This hyponatremia is 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 Patient was found drinking out of the toilet bowl at his [facility] facility. Sodium was 122 on admission. Mentation is stable. With previous admissions he was confused, altered, tremulous. He is not with this admission. He is drinking out of the toilet bowel even when stool is in it. In the past he was given hypertonic saline. With this admission he has been given normal saline. Goal correction is 6-8 mill equivalents over 24 hours. Corrected appropriately. Now within normal limits. 05 stopped. Patient is medically cleared for discharge back to [facility]. (2) Psychogenic polydipsia: Impression : Patient needs continued close follow-up with neurology, neuropsychiatry. Continue Depakote 500 mg twice daily. He is sister and DPOA seeking a second opinion from [facility] neurology. Consulted Telepsychiatry for medication management recommendation. (3) Frontotemporal dementia: Impression : Continue home medications, Lexapro, and Seroquel at night. We are following the instructions of his neurologist who has recommended: Increase his Seroquel to ISO mg twice daily, decrease his Keppra to 250 mg twice daily, for a week, and then stop entirely. She is currently out of office, and cannot be reached to confirm the former, however the DPOA did send screenshots from her MyChart conversation. Patient's DPOA is also interested in getting a neurology consult/second opinion from a neurologist at [facility]. (4) Seizure: Impression : During his first admission (this is his third), he did have a seizure. May have been attributed to the hyponatremia. Previous hospitalist at that time spoke with the neurologist, who recommended Keppra, ROSE mg twice a day. Keppra has been decreased to 250 mg twice a day for a week and then to be stopped entirely. Chief Complaint: Psychogenic Polydipsia History of Present Illness: Patient states they are here for "I don't know oh yeah I drank too much water" States it's because he couldn't brush his teeth. He can say he had a seizure, but his insight is very impaired. Asked how long he has lived at [facility], he says for a few days Says he lives there only because he drinks too much water He denies having any known mental health diagnoses, just drinking too much water He says his sister is his guardian. He says he used to work before he went there, but confabulates, poorly. Denies that he hurts himself, and denies wanting to hurt himself. He looks at the board when I ask him what the date is. He gets it right, but is obviously reading it form the wall. Asked what hospital he is in, he asks the nurse what town it is Then says he is in [facility]. Suicide Ideation - Homicide Ideation - Self Harm: Above Psychiatric History - Treatment History: Providers: Follows with neurology for frontotemporal dementia and psychogenic Diagnoses: As above Hospitalizations: No psychiatric hospitalizations known, he is a poor historian Suicide Attempts:Denies Med Hx Notes:Seroquel was just increased to 150mg po bid, and Keppra decreased to 250mg daily wi plan for taper and stop Community Resources Accessed: ED Family Psych History/ History of suicide: Denies known family history of SMI or suicide, not a reliable historian Nutritional Status: No nutritional concerns Medication & Allergies Ambulatory Orders Medication Instructions Recorded Confirmed amlodipine 2.5 mg tablet 2.5 mg PO DAILY 02/01/25 quetiapine 100 mg tablet 100 mg PO BID 02/01/2504/16 levetiracetam 500 mg tablet 500 mg PO BID #180 tabs 04/16/25 (Keppra) lorazepam 0.5 mg tablet (Ativan) 0.5 mg PO TID PRN anx iety 03/18/25 04/16/25 escitalopram oxalate 20 mg tablet 20 mg PO DAILY 03/1904/16/25 divalproex 500 mg tablet,delayed 500 mg PO BID 5 04/16/25 release ibuprofen 400 mg tablet 400 mg PO Q6H PRN pain 04/1604/16/25 [id number] acid 0.4 1 tab PO DAILY 04/16/25 mg-lycopene 300 mcg-lutein 250 mcg tablet ([facility] Adults 50 Plus) trazodone 100 mg tablet 100 mg PO QPM PRN insomnia 0 04/16/25 04/16/25 Allergies Allergy/AdvReac Type Severity Reaction Status Date / Time No Known Drug Allergies Allergy Verified 03/17/25 12:37 Drug & Alcohol History Does patient have Drug/ETOH history or addictive behavior?: No Trauma History of trauma, abuse, neglect, or exploitation (Notes): Not known Personal Information Does the patient have a history or present tendencies for violence?: None History or present tendencies for violence (Notes): None reported Services History: N Does patient have any Legal Charges or Investigations?: No Legal Charges or Investigations (Notes): Denies Environment & Living Situation - Social, Peer-Group (Note): At home Environment & Living Situation - Social, Peer-Group (Notes): LIves at [facility], which is clearly some form of care facility Collateral - Interdisciplinary Input: Reviewed per ED and EMR notes. Family & Social History Family History Comment/Other: No known family history of SMI or suicide Living Situation: With family Mental Status Exam Appearance and Attire: Appropriately dressed and groomed with adequate hygeine Attitude and Behavior: Cooperative Speech: wnl Affect and Mood: Mood congruent Association and Thought Process: Logical with intact association Thought Content: No suicidal or homicidal or overtly delusional content, but prominent confabulatory content Perception: Not obviously attending Sensorium, memory and orientation: Alert, oriented to self, can orient himself to date by using the board, confabulates location, clear sensoriumr Intellectual - Cognitive functioning: Estimated Normal range prior to other illnesses Insight and Judgement: Absent insight, likely at baseline. Judmeent impaired at baseline as well. Emotional and Behavioral Functioning: Appropriate to known or estimated baseline Ability to Self-Care: Appropriate to known or estimated baseline Personal Goals Short-term Goals: To go home Risk/Protective Factors Risk Factors: N/A Protective Factors / Internal: N/A Protective Factors / External: N/A Plan Treatment - Therapy Recommendations: This is a very pleasant 49M with history of frontotemporal dementia and psychogenic polydipsia with recurrent complications. There is no great treatment for psychogenic polydipsia outside of restrictions on access to fluids. There are scattered case reports and suggestions about antipsychotics, particulalry clozapine, being used, but these are in patients with concommittant schizophrenia. There is even less information about comorbid FTD, so I don't think a trial is really worth the risks. I have some random thoughts about potential medication strategies, but he does appear to have neurology well involved, and I think that is appropriate, and psychiatry will only make too many cooks in the kitchen here. I think my biggest suggestion would be to consider palliative care involvement for goals of care, if they are not already involved. Given the nature of his primary diagnosis, palliative may be able to help clarify with guardian how aggressively she/family want to balance the discomfort of denying him water with the consequences of overingestion. But he is otherwise healthy enough, that could be done outpatient if ready for discharge today. Recommendations: * As above * I agree patient needs to remain in facility with 24hr supervision, and that he lacks decision making capacity. Pharmacological Recommendations: No change in ED. Problem List (1) Acute hyponatremia: (2) Psychogenic polydipsia: (3) Frontotemporal dementia: (4) Seizure: Time Spent & Provider Location Telepsych consultation conducted via videoconferencing: Yes (Complexity ) List names and roles of persons who participated in consult: Caty Jules MD Telepsych Provider Location: [place] Time Spent (Minutes): 45 (Complexity) [facility] Active Problems All Active Problems Psychogenic polydipsia (Acute) Acute hyponatremia (Acute) OCD (obsessive compulsive disorder) (Acute) Frontotemporal dementia (Acute) Anxiety (Acute) Laceration of head (Acute) Medical History Medical History Psychogenic polydipsia Dementia Seizure Psychogenic polydipsia MRI of head 12/[address] [facility] advanced ischemic vascular disease. BC he tries to swallow foods whole, changed to pureed diet 01/2025 admit. Impulsive and drinks from toilet at [facility] and at [facility] Dementia Social History Social History Smoking Status: Smoker with current status unk Second hand tobacco smoke exposure: No Do you dip or chew tobacco?: No Do you vape?: No Level: Independent Do you feel safe in your home environment?: Yes History of physical, verbal, emotional, or financial abuse?: No POLST Patient has POLST: Yes
[2025-04-19 00:25] VITALS: O2SAT 96
[2025-04-19 05:53] LABS: HCT - HEMATOCRIT 38.2 % (42.0-52.0); HGB - HEMOGLOBIN 12.4 g/dL (14.0-18.0); MEAN PLATELET VOLUME 8.9 fL (7.4-11.4); PLT - PLATELET COUNT 103.0 10^3/uL (130-450); RED CELL DISTRIBUTION WIDTH 13.2 % (12.0-15.0)
[2025-04-19 06:19] LABS: BUN - BLOOD UREA NITROGEN 13.0 mg/dL (6-20); CARBON DIOXIDE - CO2 33.0 mmol/L (21-32); CREATININE 0.9 mg/dL (0.6-1.3); GFR - MDRD 89.0 (>89)
[2025-04-19 12:04] VITALS: BP 126/75; TEMP 97.9
[2025-04-19 18:08] LABS: OSMOLALITY 251 mOsmol/kg (275-295)
[2025-04-20 11:09] LABS: OSMOLALITY URINE 44 mOsmol/kg (.)
== END 2025-04-19 12:10 | disposition home or self-care (01) | DRG 641 ==
LOC: ED 11:21 → ICU 12:40 → MS2 04-17 17:33
PROVIDERS: ADMIT Internal Medicine; ATTEND Internal Medicine